=== PATIENT | female | born 1945 | race Caucasian/White ===

== ENCOUNTER → 2016-08-03 | Outpatient (CLI) | payer MEDICARE, OTHER ==
[~2016-08-03] MED LIST: AC500T; ACDPT PO; ALPR.25T PO; ALPR.5T; ALPR0.2550; ALPR0.2550 PO; ASP81CT; ASPI-892 PO; CELEBREX; CETI10TA17 PO; CTRZ10T; CTRZ10T PO; CYAN25005 SL; DIPH1TAB25 PO; ENAL10TA PO; ENLP10T; ENLP10T PO; ESCT10T; GLIP10TA23; GLIPIZIDE; LEVO75TA57 PO; LEVOTHYROXINE; LUMIGAN; LVT.025T; LVT.025T PO; METFORMIN; MTF500T; MTF500T PO; NF-ESOM40C PO; NITR100C3 PO; ONDN4T PO; PROBIOTIC1 EACH PO; TIMO10DR OU; TML.25OP; TRAV0.004S; [UNRECOGNIZED DRUG - CODE] OD; [UNRECOGNIZED DRUG - CODE] PO; [UNRECOGNIZED DRUG - OTHER]
--- OUTSIDE RECORDS SUMMARY | 2016-08-03 09:29 | XMS REPORT | Continuity of Care Document ---
Author Author [facility] Organization [facility] Address Unknown Phone Unavailable Care Team Providers Care Inspectors And Regulatory Officers Name Role Phone Zion Figueroayd PCP [phone] Source Comments Some departments are not documenting in the electronic medical record. If you do not see the information that you expected, contact Release of Information in the Health Information Management department at [phone] for further assistance in locating additional records.[facility] Active Allergies and Adverse Reactions Allergen Noted Date Severity Reactions Comments Anectine 08/05/2014 UNKNOWN Codeine Sulfate 08/05/2014 UNKNOWN Contrast Dye Iv, Iodine 08/05/2014 UNKNOWN Containing Demerol 08/05/2014 UNKNOWN Levaquin 08/05/2014 UNKNOWN Rocephin 08/05/2014 UNKNOWN Talwin 08/05/2014 UNKNOWN Current Medications Prescription Sig. Disp. Refills Start End Date Status Date aspirin EC (LO-DOSE Take 81 mg by mouth Active ASPIRIN) 81 mg tablet daily. cetirizine (ZYRTEC) 10 mg Take 10 mg by mouth Active tablet daily. levothyroxine (SYNTHROID) Take 75 mcg by mouth Active 75 mcg tablet daily. metFORMIN (GLUCOPHAGE) Take 250 mg by mouth Active 500 mg tablet twice daily with meals. cyanocobalamin (VITAMIN Take 1,000 mcg by mouth Active B-12) 1,000 mcg tablet daily. CALCIUM CITRATE (CITRACAL Take 400 mg by mouth Active PO) daily. TRAVOPROST (BENZALKONIUM) Place 1 Drop into or Active (TRAVATAN OP) around eye(s) daily. LOTEPREDNOL ETABONATE Place 1 Drop into or Active (ALREX OP) around eye(s) daily. both eyes promethazine (PHENERGAN) Take 25 mg by mouth every Active 25 mg tablet 6 hours as needed. bepotastine besilate Place 1 Drop into or Active (BEPREVE) 1.5 % drop around eye(s) twice ophthalmic solution daily. TIMOLOL MALEATE OP Place into or around Active eye(s). sucralfate (CARAFATE) 1 Take 1 Tab by mouth three 90 Tab 2 09/14/19 Active gram tablet times daily. 15 lubiprostone (AMITIZA) 8 Take 1 Cap by mouth twice 48 Cap 0 09/25/19 Active mcg cap capsule daily with meals. 15 Active Problems Problem Noted Date Diabetes (HCC) 08/09/2014 Constipation 08/09/2014 GERD (gastroesophageal reflux disease) 08/09/2014 Social History Tobacco Use Types Packs/Day Years Used Date Former Smoker Quit: 08/09/1982 Smokeless Tobacco: Never Used Alcohol Use Drinks/Week oz/Week Comments No Last Filed Vital Signs Vital Sign Reading Time Taken Blood Pressure 169/86 09/13/2014 1:54 PM CDT Pulse 60 09/13/2014 1:54 PM CDT Temperature 36.6 C (97.8 F) 09/13/2014 1:54 PM CDT Respiratory Rate 18 09/13/2014 1:54 PM CDT Height 1.803 m (5' 11") 09/13/2014 1:54 PM CDT Weight 97.569 kg (215 lb 1.6 oz) 09/13/2014 1:54 PM CDT Body Mass Index 30.01 09/13/2014 1:54 PM CDT Oxygen Saturation - - Plan of Care Health Maintenance Due Date Last Done Comments Physical (Comprehensive) 1952 Exam Pertussis Vaccine 1956 Tetanus Vaccine 1962 Breast Cancer Screening 1985 Shingles Vaccine 2005 Osteoporosis Screening 2010 Prevnar/Pneumovax (#1) 2010 Influenza Vaccine 03/01/2016 Colorectal Cancer 08/23/2024 08/23/2014 Screening Results from Last 3 Months Not on file
--- NOTE | 2016-08-06 13:15 | Diagnostic Imaging Report ---
Bilateral screening mammogram. The current study was also evaluated with a Computer Aided Detection (CAD) system. INDICATION: Screening. No current complaints stated on the questionnaire. COMPARISON: 08/02/15. FINDINGS: The breasts are composed of heterogeneously dense parenchyma which may decrease mammographic sensitivity. A large lumpectomy was performed in the left breast with stable scarring and skin thickening from multiple prior exams is seen. Allowing for technique and positional differences, no suspicious change is seen. IMPRESSION: No significant change. ACR BI-RADS Category 2: Benign findings. Result letter will be mailed to the patient. Note: At least 10% of breast cancer is not imaged by mammography. Dictated by: Dictated on workstation # [id number]
== END ==
LOC: RAD 09:26
PROVIDERS: ATTEND Internal Medicine Hematology & Oncology
DX: Z12.31 Encounter for screening mammogram for malignant neoplasm of breast (principal); Z85.3 Personal history of malignant neoplasm of breast
CPT/HCPCS: 77067

== ENCOUNTER 2016-08-08 08:43 | Outpatient (RCR) | payer MEDICARE, OTHER ==
--- OUTSIDE RECORDS SUMMARY | 2016-08-08 08:45 | XMS REPORT | Continuity of Care Document ---
Author Author [facility] Organization [facility] Address Unknown Phone Unavailable Care Team Providers Care Customs Manager Name Role Phone Zion Figueroayd PCP [phone] Source Comments Some departments are not documenting in the electronic medical record. If you do not see the information that you expected, contact Release of Information in the Health Information Management department at [phone] for further assistance in locating additional records.[facility] Active Allergies and Adverse Reactions Allergen Noted [...]
[2016-08-08 08:59] LABS: BASOPHILS % (AUTO) 0 % (0-10); EOSINOPHILS # (AUTO) 0.3 10^3/uL (0.0-0.3); EOSINOPHILS % (AUTO) 3 % (0-10); LYMPHOCYTES # (AUTO) 2.4 X 10^3 (1.0-4.0); LYMPHOCYTES % (AUTO) 21 % (12-44); MEAN CORPUSCULAR HEMOGLOBIN 31 PG (25-34); MEAN CORPUSCULAR HGB CONC 33 G/DL (32-36); MEAN CORPUSCULAR VOLUME 92 FL (80-99); MEAN PLATELET VOLUME 10.1 FL (7.4-10.4); MONOCYTES % (AUTO) 9 % (0-12); NEUTROPHILS # (AUTO) 7.7 X 10^3 (1.8-7.8); NEUTROPHILS % (AUTO) 67 % (42-75); PLATELET COUNT 226 10^3/uL (130-400); RED CELL DISTRIBUTION WIDTH 13.6 % (10.0-14.5); WHITE BLOOD COUNT 11.5 10^3/uL (4.3-11.0)
[2016-08-08 10:09] LABS: BILIRUBIN,TOTAL 0.7 MG/DL (0.1-1.0); CALCIUM 9.3 MG/DL (8.5-10.1); CREATININE SERUM 1.03 MG/DL (0.60-1.30); POTASSIUM 4.2 MMOL/L (3.6-5.0); TOTAL PROTEIN 7.1 G/DL (6.4-8.2)
== END 2016-11-06 | disposition home or self-care (01) ==
LOC: ONC 08:43
PROVIDERS: ATTEND Internal Medicine Hematology & Oncology
DX: Z08 Encounter for follow-up examination after completed treatment for malignant neoplasm (principal); Z85.3 Personal history of malignant neoplasm of breast; E11.9 Type 2 diabetes mellitus without complications; I10 Essential (primary) hypertension; I34.8 Other nonrheumatic mitral valve disorders; E78.00 Pure hypercholesterolemia, unspecified; E03.9 Hypothyroidism, unspecified; F41.9 Anxiety disorder, unspecified; H40.9 Unspecified glaucoma; Z79.899 Other long term (current) drug therapy
CPT/HCPCS: 36415; 80053; 85025; 99213

== ENCOUNTER → 2016-08-13 | Outpatient (CLI) | payer MEDICARE, OTHER ==
--- OUTSIDE RECORDS SUMMARY | 2016-08-13 11:41 | XMS REPORT | Continuity of Care Document ---
Author Author [facility] Organization [facility] Address Unknown Phone Unavailable Care Team Providers Care Laser Machine Operator Name Role Phone Zion Figueroayd PCP [phone] Source Comments Some departments are not documenting in the electronic medical record. If you do not see the information that you expected, contact Release of Information in the Health Information Management department at [phone] for further assistance in locating additional records.[facility] Active Allergies and Adverse Reactions Allergen [...]
[2016-08-13 12:04] LABS: MEAN PLATELET VOLUME 9.9 FL (7.4-10.4); RED BLOOD COUNT 4.72 10^6/uL (4.35-5.85); RED CELL DISTRIBUTION WIDTH 13.1 % (10.0-14.5); WHITE BLOOD COUNT 10.7 10^3/uL (4.3-11.0)
--- NOTE | 2016-08-13 12:19 | Diagnostic Imaging Report ---
PA and lateral views of the chest. COMPARISON: 07/05/2010. FINDINGS: There is mild infiltrate in the lateral aspect of the right middle lobe. The left lung appears clear. The heart size is normal. No effusion or pneumothorax. The mediastinum and mari appear unremarkable. IMPRESSION: Mild right middle lobe infiltrates. Report was called and faxed to office of Dr. Figueroa @ 12:11 PM/harshad. Dictated by: Dictated on workstation # [id number]
== END ==
LOC: RAD 11:36
PROVIDERS: ATTEND Family Medicine
DX: R05 Cough (principal); R50.9 Fever, unspecified
CPT/HCPCS: 36415; 71020; 85027

== ENCOUNTER → 2016-11-28 | Outpatient (CLI) | payer MEDICARE, OTHER ==
--- NOTE | 2016-11-28 13:25 | Diagnostic Imaging Report ---
PROCEDURE: US Carotid Duplex Bilateral. TECHNIQUE: Multiple real-time grayscale images were obtained over the carotid arteries in various projections bilaterally. Additional duplex Doppler and color Doppler images were also obtained. INDICATION: Dizziness. FINDINGS: Grayscale images demonstrate generally mild plaque along the carotid bifurcation bilaterally. Color Doppler demonstrates patent common, internal, and external carotid arteries on both sides as well as antegrade flow in both vertebral arteries demonstrated. The ICA velocities on the right side are: 82, 42, and 50 cm/s. On the left side, the ICA velocities are: 61, 18, and 40 cm/s. The ICA/CCA ratios are up to 1.4 on the right and also 1.4 on the left. IMPRESSION: Mild atherosclerotic plaque is seen in the carotid bifurcation areas bilaterally with an estimated underlying stenosis of less than 40% bilaterally. Dictated by: Dictated on workstation # [id number]
== END ==
LOC: RAD 08:41
PROVIDERS: ATTEND Family Medicine
DX: R26.81 Unsteadiness on feet (principal); R42 Dizziness and giddiness; I65.23 Occlusion and stenosis of bilateral carotid arteries
CPT/HCPCS: 93880

== ENCOUNTER → 2017-08-05 | Outpatient (CLI) | payer MEDICARE, OTHER ==
--- NOTE | 2017-08-06 12:51 | Diagnostic Imaging Report ---
EXAMINATION: Digital mammogram bilateral screening. This study was compared to the prior exams of 08/03/2016, 08/02/2015, and 08/02/2014. At this time, there are no current complaints. The current study was also evaluated with a Computer Aided Detection (CAD) system. FINDINGS: As noted on the previous study, there are postsurgical and post therapeutic changes involving the left breast. The scar formation in the left breast seems stable. There is no sign of recurrent malignancy in the left breast. The fibroglandular tissue in the right breast is heterogeneously dense. This does limit the sensitivity of this exam. Overall, there does not appear to have been any significant change when compared to the previous studies. There is no primary or secondary sign of malignancy noted. IMPRESSION: 1. There is no evidence for malignancy. 2. The patient should have her annual bilateral screening mammogram on schedule in August of 2018. ACR BI-RADS Category 1: Negative. Result letter will be mailed to the patient. Note: At least 10% of breast cancer is not imaged by mammography. Dictated on workstation # [id number]
== END ==
LOC: RAD 09:40
PROVIDERS: ATTEND Internal Medicine Hematology & Oncology
DX: Z12.31 Encounter for screening mammogram for malignant neoplasm of breast (principal)
CPT/HCPCS: 77067

== ENCOUNTER 2017-08-06 08:42 | Outpatient (RCR) | payer MEDICARE, OTHER ==
[2017-08-06 09:51] LABS: BASOPHILS # (AUTO) 0.1 10^3/uL (0.0-0.1); BASOPHILS % (AUTO) 1 % (0-10); EOSINOPHILS # (AUTO) 0.3 10^3/uL (0.0-0.3); EOSINOPHILS % (AUTO) 4 % (0-10); HEMATOCRIT 41 % (35-52); HEMOGLOBIN 13.6 G/DL (11.5-16.0); LYMPHOCYTES # (AUTO) 2.7 X 10^3 (1.0-4.0); LYMPHOCYTES % (AUTO) 39 % (12-44); MEAN CORPUSCULAR HEMOGLOBIN 31 PG (25-34); MEAN CORPUSCULAR HGB CONC 33 G/DL (32-36); MEAN CORPUSCULAR VOLUME 95 FL (80-99); MEAN PLATELET VOLUME 10.3 FL (7.4-10.4); MONOCYTES # (AUTO) 0.6 X 10^3 (0.0-1.0); MONOCYTES % (AUTO) 9 % (0-12); NEUTROPHILS # (AUTO) 3.3 X 10^3 (1.8-7.8); NEUTROPHILS % (AUTO) 47 % (42-75); PLATELET COUNT 273 10^3/uL (130-400); RED BLOOD COUNT 4.37 10^6/uL (4.35-5.85); RED CELL DISTRIBUTION WIDTH 13.7 % (10.0-14.5); WHITE BLOOD COUNT 6.9 10^3/uL (4.3-11.0)
[2017-08-06 10:08] LABS: ALANINE AMINOTRANSFERASE 15 U/L (0-55); ALBUMIN 4.1 GM/DL (3.2-4.5); ALKALINE PHOSPHATASE 70 U/L (40-136); BILIRUBIN,TOTAL 0.4 MG/DL (0.1-1.0); BUN/CREATININE RATIO 27; CALCIUM 9.8 MG/DL (8.5-10.1); CARBON DIOXIDE 25 MMOL/L (21-32); CHLORIDE 105 MMOL/L (98-107); CREATININE SERUM 0.91 MG/DL (0.60-1.30); GFR ESTIMATED > 60; GLUCOSE 128 MG/DL (70-105); POTASSIUM 4.9 MMOL/L (3.6-5.0); SODIUM 139 MMOL/L (135-145); TOTAL PROTEIN 7.5 GM/DL (6.4-8.2)
== END 2017-11-04 | disposition home or self-care (01) ==
LOC: ONC 08:42
PROVIDERS: ATTEND Internal Medicine Hematology & Oncology
DX: Z08 Encounter for follow-up examination after completed treatment for malignant neoplasm (principal); Z85.3 Personal history of malignant neoplasm of breast; E11.9 Type 2 diabetes mellitus without complications; I10 Essential (primary) hypertension; I34.8 Other nonrheumatic mitral valve disorders; E78.00 Pure hypercholesterolemia, unspecified; E03.9 Hypothyroidism, unspecified; F41.9 Anxiety disorder, unspecified; H40.9 Unspecified glaucoma; J06.9 Acute upper respiratory infection, unspecified; J32.9 Chronic sinusitis, unspecified; Z86.73 Personal history of transient ischemic attack (TIA), and cerebral infarction without residual deficits; Z79.899 Other long term (current) drug therapy
CPT/HCPCS: 36415; 80053; 85025; 99213

== ENCOUNTER → 2018-03-26 | Outpatient (CLI) | payer MEDICARE, OTHER | LOC: CARD 08:25 | PROVIDERS: ATTEND Family Medicine | DX: R06.09 Other forms of dyspnea (principal); I08.3 Combined rheumatic disorders of mitral, aortic and tricuspid valves | CPT/HCPCS: 93306 ==

== ENCOUNTER → 2018-05-01 | Outpatient (CLI) | payer MEDICARE, OTHER ==
[~2018-05-01] VITALS: Ht 180.3 cm; Wt 92.5 kg
[~2018-05-01] MED LIST changes: +AFLI2VIA IO; +BIMA2.5D4 OU; +CATHETER FLUSH 10 ML SYR IV PRN; +KRIL1CAP18 PO; +MELA1TAB8 PO; +MULT-178 PO; +OLOP2.5D5 OU; +PROM25TA14 PO; +REGADENOSON 0.4 MG/5 ML SYR (LEXISCAN) IV ONE
[2018-05-01 08:48] VITALS: BP 198/108
[2018-05-01 08:52] VITALS: BP 166/72
--- NOTE | 2018-05-05 13:37 | STRESS TEST ---
DATE OF SERVICE: 05/01/2018 RESTING AND POST REGADENOSON TECHNETIUM-99M TETROFOSMIN SPECT CT IMAGING CLINICAL DIAGNOSES: Tiredness, shortness of breath, diabetes and hypertension. Baseline images were carried out after injection of 10.07 mCi of technetium-99m Tetrofosmin. This was followed by 0.4 mg of Regadenoson and 31.1 mCi of technetium-99m Tetrofosmin for stress imaging. The electrocardiogram showed sinus rhythm at baseline and it did not change significantly with the Regadenoson infusion. The patient reported some abdominal discomfort following Regadenoson infusion, which resolved in a few minutes. Review of images at rest and following stress indicates a small transient basal inferior perfusion defect. Gated images showed normal global left ventricular systolic function and normal regional wall motion. Left ventricular ejection fraction is calculated to be 64%. Left ventricular end diastolic volume is 70 mL. TID is absent (1.02). CONCLUSIONS: 1. This study is indicative of a small amount of basal inferior ischemia. 2. Normal regional wall motion. 3. Normal global left ventricular systolic function with a calculated ejection fraction of 64%. Job ID: [id number] DocumentID: [id number] Dictated Date: 05/05/2018 13:10:48 Cattery Operator Date: 05/05/2018 13:37:19 Dictated By: HEATHER GALVEZ MD, MA, FACP, FACC,
== END ==
LOC: CARD 06:57
PROVIDERS: ATTEND Internal Medicine Cardiovascular Disease
DX: R53.83 Other fatigue (principal); R06.02 Shortness of breath; E78.2 Mixed hyperlipidemia; I10 Essential (primary) hypertension; E11.9 Type 2 diabetes mellitus without complications; I27.20 Pulmonary hypertension, unspecified
CPT/HCPCS: 78452; 93017

== ENCOUNTER 2018-05-06 11:20 | Outpatient (CLI) | payer MEDICARE, OTHER ==
[~2018-05-06 11:20] MED LIST changes: -AFLI2VIA IO; -BIMA2.5D4 OU; -CATHETER FLUSH 10 ML SYR IV PRN; -KRIL1CAP18 PO; -MELA1TAB8 PO; -MULT-178 PO; -OLOP2.5D5 OU; -PROM25TA14 PO; -REGADENOSON 0.4 MG/5 ML SYR (LEXISCAN) IV ONE
== END 2018-05-06 12:05 | disposition home or self-care (01) ==
LOC: SLEEP 11:20
PROVIDERS: ATTEND Nurse Practitioner Family
DX: G47.10 Hypersomnia, unspecified (principal); I27.20 Pulmonary hypertension, unspecified; R06.02 Shortness of breath; I63.9 Cerebral infarction, unspecified

== ENCOUNTER 2018-05-13 08:07 | Day surgery (SDC) | payer MEDICARE, OTHER ==
[~2018-05-13] VITALS: Ht 180.3 cm; Wt 91.2 kg
[2018-05-13] MEDS ORDERED: HEParin (CATH LAB) 2,000 ML IV ONE (08:12)
[2018-05-13] MEDS ORDERED: NS IV 1000 ML 1,000 ML ONE (08:12)
[2018-05-13] MEDS ORDERED: LIDOCAINE 1% INJ 20 ML 20 ML VIAL ONE (08:12)
--- OUTSIDE RECORDS SUMMARY | 2018-05-13 08:38 | XMS REPORT | Clinical Summary ---
Author Author [facility] Organization [facility] Address Unknown Phone Unavailable Care Team Providers Care Compensation/Benefits Specialist Name Role Phone Sandy Freitas TATA Unavailable Jose Manuel Figueroa MD PCP Andrae Tran MD Unavailable Source Comments Some departments are not documenting in the electronic medical record. If you do not see the information that you expected, contact Release of Information in the Health Information Management department at [phone] for further assistance in locating additional records.[facility] Allergies Active Allergy Reactions Severity Noted Date Comments Succinylcholine Chloride UNKNOWN 08/05/2014 Codeine Sulfate UNKNOWN 08/05/2014 Iodinated Contrast- Oral UNKNOWN 08/05/2014 And Iv Dye Meperidine UNKNOWN 08/05/2014 Levofloxacin UNKNOWN 08/05/2014 Ceftriaxone UNKNOWN 08/05/2014 Pentazocine Lactate UNKNOWN 08/05/2014 Current Medications Prescription Sig. Disp. Refills Start [...] three 90 Tab 2 09/14/19 Active gram tabletIndications: times daily. 15 Epigastric pain lubiprostone (AMITIZA) 8 Take 1 Cap by mouth twice 48 Cap 0 09/25/19 Active mcg cap capsule daily with meals. 15 Active Problems Problem Noted Date Diabetes (HCC) 08/09/2014 Constipation 08/09/2014 GERD (gastroesophageal reflux disease) 08/09/2014 Family History Medical History Relation Name Comments COPD Brother Cancer-Colon Brother 1/2 brother, dx in his 50's Cancer Brother GI Problem Daughter Cancer Father oral cancer COPD Mother Hypertension Son Relation Name Status Comments Brother Brother Daughter Alive Daughter Alive Father Mother Son Alive Social History Tobacco Use Types Packs/Day Years Used Date Former Smoker Quit: 08/09/1982 Smokeless Tobacco: Never Used Alcohol Use Drinks/Week oz/Week Comments No Sex Assigned at Date Recorded Not on file Last Filed Vital Signs Vital Sign Reading Time Taken Blood Pressure 169/86 09/13/2014 1:54 PM CDT Pulse 60 09/13/2014 1:54 PM CDT Temperature 36.6 C (97.8 F) 09/13/2014 1:54 PM CDT Respiratory Rate 18 09/13/2014 1:54 PM CDT Oxygen Saturation - - Inhaled Oxygen - - Concentration Weight 97.6 kg (215 lb 1.6 oz) 09/13/2014 1:54 PM CDT Height 180.3 cm (5' 11") 09/13/2014 1:54 PM CDT Body Mass Index 30 09/13/2014 1:54 PM CDT Plan of Treatment Health Maintenance Due Date Last Done Comments HEPATITIS C SCREENING 1945 PHYSICAL (COMPREHENSIVE) 1952 EXAM PERTUSSIS VACCINE 1956 TETANUS VACCINE 1962 BREAST CANCER SCREENING 1985 SHINGLES RECOMBINANT 09/01/1995 VACCINE (1 of 2) OSTEOPOROSIS 2010 SCREENING/MONITORING PNEUMONIA (PCV13/PPSV23) 2010 VACCINES (1 of 2 - PCV13) INFLUENZA VACCINE 01/29/2018 COLORECTAL CANCER 08/23/2024 08/23/2014 SCREENING Results Not on filefrom Last 3 Months
[2018-05-13 08:39] VITALS: BP 157/78
[2018-05-13 08:40] LABS: HEMOGLOBIN 13.8 G/DL (11.5-16.0); MEAN PLATELET VOLUME 10.4 FL (7.4-10.4); RED BLOOD COUNT 4.58 10^6/uL (4.35-5.85); RED CELL DISTRIBUTION WIDTH 13.3 % (10.0-14.5); WHITE BLOOD COUNT 6.6 10^3/uL (4.3-11.0)
--- OUTSIDE RECORDS SUMMARY | 2018-05-13 08:40 | XMS REPORT | Continuity of Care Document ---
Author Author [facility] Organization [facility] Address Unknown Phone Unavailable Allergies Active Description Code Type Severity Reaction Onset Reported/Identified Relationship to Patient Clinical Status Yes ciprofloxacin [id number] Drug Allergy Unknown N/A 09/02/2006 Yes codeine [id number] Drug Allergy Unknown N/A 09/02/2006 Yes IV DYE IV DYE Unknown N/A 09/02/2006 Yes meperidine [id number] Drug Allergy Unknown N/A 09/02/2006 Yes succinylcholine [id number] Drug Allergy Mild N/A 11/23/2008 Yes pentazocine [id number] Drug Allergy Mild N/A 06/27/2009 Yes ceftriaxone [id number] Drug Allergy Mild N/A 07/07/2009 Yes levofloxacin [id number] Drug Allergy Mild N/A 07/07/2009 Yes morphine [id number] Drug Allergy Mild N/A 07/07/2009 Yes Iodinated Contrast Media - IV Dye [id number] Drug Allergy Unknown N/A 07/07 Yes Iodinated Contrast Media - Oral and [id number] Drug Allergy Unknown N/A 12/2009 Yes Iodinated Contrast- Oral and IV Dye [id number] Drug Allergy Unknown N/A 12/2009 Medications There is no data. Problems Date Dx Coded Attending Type Code Diagnosis Diagnosed By 07/07/2010 Ot 250.00 07/07/2010 Ot 276.50 07/07/2010 Ot 401.9 07/07/2010 Ot 558.9 07/07/2010 Ot 599.0 04/11/2011 Ot 784.0 HEADACHE 04/21/2011 Ot 244.9 HYPOTHYROIDISM NOS 04/21/2011 Ot 250.00 DIAB PRIMO WO COMPL, TYPE II OR UNSPEC TY 04/21/2011 Ot 300.00 ANXIETY STATE NOS 04/21/2011 Ot 401.9 HYPERTENSION NOS 04/21/2011 Ot 414.01 CORONARY ATHEROSCLEROSIS OF [place] CORON 04/21/2011 Ot 434.91 CEREBRAL ART OCCLUSION NOS W CEREBRAL IN 04/21/2011 Ot V04.81 ND FOR PROPHYLACTIC VACCIN AND INOCULATI 08/12/2012 Ot 244.9 HYPOTHYROIDISM NOS 08/12/2012 Ot 250.00 DIAB PRIMO WO COMPL, TYPE II OR UNSPEC TY 08/12/2012 Ot 272.0 PURE HYPERCHOLESTEROLEM 08/12/2012 Ot 300.00 ANXIETY STATE NOS 08/12/2012 Ot 365.9 GLAUCOMA NOS 08/12/2012 Ot 401.9 HYPERTENSION NOS 08/12/2012 Ot 424.0 MITRAL VALVE DISORDER 08/12/2012 Ot V10.3 HX OF BREAST MALIGNANCY 08/12/2012 Ot V67.1 RADIOTHERAPY FOLLOW-UP 11/11/2012 Ot 244.9 HYPOTHYROIDISM NOS 11/11/2012 Ot 250.00 DIAB PRIMO WO COMPL, TYPE II OR UNSPEC TY 11/11/2012 Ot 272.0 PURE HYPERCHOLESTEROLEM 11/11/2012 Ot 300.00 ANXIETY STATE NOS 11/11/2012 Ot 365.9 GLAUCOMA NOS 11/11/2012 Ot 401.9 HYPERTENSION NOS 11/11/2012 Ot 424.0 MITRAL VALVE DISORDER 11/11/2012 Ot V10.3 HX OF BREAST MALIGNANCY 11/11/2012 Ot V67.1 RADIOTHERAPY FOLLOW-UP 07/23/2014 PEGGY TRANG GRAVES Ot 244.9 HYPOTHYROIDISM NOS 07/23/2014 PEGGY GRAVES TRANG Saleh Ot 250.00 DIAB PRIMO WO COMPL, TYPE II OR UNSPEC TY 07/23/2014 PEGGY TRANG Saleh Ot 401.9 HYPERTENSION NOS 08/25/2014 IRENE KAPADIA, JOHANN Saleh Ot 174.9 08/25/2014 IRENE KAPADIA, JOHANN Saleh Ot V76.11 09/27/2014 IRENE KAPADIA, JOHANN Therese Ot 244.9 09/27/2014 IRENE KAPADIA, JOHANN Saleh Ot 250.00 09/27/2014 IRENE KAPADIA, JOHANN Saleh Ot 272.0 09/27/2014 IRENE KAPADIA, JOHANN Saleh Ot 300.00 09/27/2014 IRENE KAPADIA, JOHANN Saleh Ot 365.9 09/27/2014 IRENE KAPADIA, JOHANN Saleh Ot 401.9 09/27/2014 IRENE KAPADIA, JOHANN Saleh Ot 424.0 09/27/2014 IRENE KAPADIA, JOHANN Saleh Ot V10.3 09/27/2014 IRENE KAPADIA, JOHANN Saleh Ot V58.69 09/27/2014 IRENE KAPADIA, JOHANN Saleh Ot V67.1 10/06/2014 IRENE KAPADIA, JOHANN Saleh Ot 244.9 10/06/2014 IRENE KAPADIA, JOHANN Saleh Ot 250.00 10/06/2014 IRENE KAPADIA, JOHANN Saleh Ot 272.0 10/06/2014 IRENE KAPADIA, JOHANN Saleh Ot 300.00 10/06/2014 IRENE KAPADIA, JOHANN Saleh Ot 365.9 10/06/2014 IRNEE KAPADIA, JOHANN Saleh Ot 401.9 10/06/2014 IRENE KAPADIA, JOHANN Saleh Ot 424.0 10/06/2014 IRENE KAPADIA, JOHANN Saleh Ot V10.3 10/06/2014 IRENE KAPADIA, JOHANN Saleh Ot V58.69 10/06/2014 IRENE KAPADIA, JOHANN Saleh Ot V67.1 11/08/2014 JOHANN BONILLA MD Ot 244.9 HYPOTHYROIDISM NOS 11/08/2014 IRENE KAPADIA, JOHANN Saleh Ot 250.00 DIAB PRIMO WO COMPL, TYPE II OR UNSPEC TY 11/08/2014 JOHANN BONILLA MD Ot 272.0 PURE HYPERCHOLESTEROLEM 11/08/2014 JOHANN BONILLA MD Ot 300.00 ANXIETY STATE NOS 11/08/2014 JOHANN BONILLA MD Ot 365.9 GLAUCOMA NOS 11/08/2014 IRENE KAPADIA, JOHANN Saleh Ot 401.9 HYPERTENSION NOS 11/08/2014 IRENE KAPADIA, JOHANN Saleh Ot 424.0 MITRAL VALVE DISORDER 11/08/2014 IRENE KAPADIA, JOHANN Saleh Ot V10.3 HX OF BREAST MALIGNANCY 11/08/2014 IRENE KAPADIA, JOHANN Saleh Ot V58.69 OTH MED,LT,CURRENT USE 11/08/2014 IRENE KAPADIA, JOHANN Saleh Ot V67.1 RADIOTHERAPY FOLLOW-UP 06/02/2015 IRENE KAPADIA, JOHANN Saleh Ot 244.9 06/02/2015 IRENE KAPADIA, JOHANN Saleh Ot 250.00 06/02/2015 IRENE KAPADIA, JOHANN Saleh Ot 272.0 06/02/2015 IRENE KAPADIA, JOHANN Saleh Ot 300.00 06/02/2015 IRENE KAPADIA, JOHANN Saleh Ot 365.9 06/02/2015 IRENE KAPADIA, JOHANN Saleh Ot 401.9 06/02/2015 IRENE KAPADIA, JOHANN Saleh Ot 424.0 06/02/2015 IRENE KAPADIA, JOHANN Saleh Ot V10.3 06/02/2015 IRENE KAPADIA, JOHANN Saleh Ot V67.1 06/02/2015 IRENE KAPADIA, JOHANN Saleh Ot 244.9 06/02/2015 IRENE KAPADIA, JOHANN Saleh Ot 250.00 06/02/2015 IRENE KAPADIA, JOHANN Saleh Ot 272.0 06/02/2015 IRENE KAPADIA, JOHANN Saleh Ot 300.00 06/02/2015 JOHANN BONILLA MD K Ot 365.9 06/02/2015 IRENE KAPADIA, JOHANN Saleh Ot 401.9 06/02/2015 IRENE KAPADIA, JOHANN Saleh Ot 424.0 06/02/2015 IRENE KAPADIA, JOHANN Saleh Ot V10.3 06/02/2015 IRENE KPAADIA, JOHANN Saleh Ot V67.1 06/02/2015 IRENE KAPADIA, JOHANN Saleh Ot 793.89 06/02/2015 IRENE KAPADIA, JOHANN Saleh Ot 174.9 06/02/2015 IRENE KAPADIA, JOHANN Saleh Ot V76.11 06/02/2015 IRENE KAPADIA, JOHANN Saleh Ot 244.9 06/02/2015 IRENE KAPADIA, JOHANN Saleh Ot 250.00 06/02/2015 IRENE KAPADIA, JOHANN Saleh Ot 272.0 06/02/2015 IRENE KAPADIA, JOHANN Saleh Ot 300.00 06/02/2015 IRENE KAPADIA, JOHANN Saleh Ot 365.9 06/02/2015 IRENE KAPADIA, JOHANN Saleh Ot 401.9 06/02/2015 IRENE KAPADIA, JOHANN Saleh Ot 424.0 06/02/2015 IRENE KAPADIA, JOHANN Saleh Ot V10.3 06/02/2015 IRENE KAPADIA, JOHANN Saleh Ot V58.69 06/02/2015 IRENE KAPADIA, JOHANN Saleh Ot V67.1 06/22/2015 ELISA JOHNSON MAIL SORTING SUPERVISOR Ot S83.261A 06/22/2015 ELISA JOHNSON MAIL SORTING SUPERVISOR Ot X58.XXXA 06/22/2015 ELISA JOHNSON MAIL SORTING SUPERVISOR Ot Y99.8 07/13/2015 ELISA JOHNSON MAIL SORTING SUPERVISOR Ot S83.261A 07/13/2015 ELISA JOHNSON MAIL SORTING SUPERVISOR Ot X58.XXXA 07/13/2015 ELISA JOHNSON MAIL SORTING SUPERVISOR Ot Y99.8 08/02/2015 Ot V76.12 08/02/2015 Ot 793.89 08/02/2015 Ot V76.12 08/02/2015 Ot 793.81 08/02/2015 Ot 781.0 08/02/2015 Ot 784.0 08/02/2015 Ot 787.01 08/02/2015 Ot 794.09 08/02/2015 Ot 174.9 08/02/2015 Ot 174.9 08/02/2015 Ot 174.9 08/02/2015 Ot 793.89 08/02/2015 Ot 244.9 08/02/2015 Ot 250.00 08/02/2015 Ot 272.0 08/02/2015 Ot 300.00 08/02/2015 Ot 365.9 08/02/2015 Ot 401.9 08/02/2015 Ot 424.0 08/02/2015 Ot V10.3 08/02/2015 Ot V67.1 08/02/2015 Ot 174.9 08/02/2015 Ot 793.89 08/02/2015 IRENE KAPADIA, JOHANN K Ot 244.9 08/02/2015 IRENE KAPADIA, JOHANN K Ot 250.00 08/02/2015 IRENE KAPADIA, JOHANN K Ot 272.0 08/02/2015 IRENE KAPADIA, JOHANN K Ot 300.00 08/02/2015 IRENE KAPADIA, JOHANN K Ot 365.9 08/02/2015 IRENE KAPADIA, JOHANN K Ot 401.9 08/02/2015 IRENE KAPADIA, JOHANN K Ot 424.0 08/02/2015 IRENE KAPADIA, JOHANN K Ot V10.3 08/02/2015 IRENE KAPADIA, JOHANN K Ot V67.1 08/02/2015 IRENE KAPADIA, JOHANN K Ot 233.0 08/02/2015 IRENE KAPADIA, JOHANN K Ot V67.9 08/02/2015 IRENE KAPADIA, JOHANN K Ot 244.9 08/02/2015 IRENE KAPADIA, JOHANN K Ot 250.00 08/02/2015 IRENE KAPADIA, JOHANN K Ot 272.0 08/02/2015 IRENE KAPADIA, JOHANN K Ot 300.00 08/02/2015 IRENE KAPADIA, JOHANN K Ot 365.9 08/02/2015 IRENE KAPADIA, JOHANN K Ot 401.9 08/02/2015 IRENE KAPADIA, JOHANN K Ot 424.0 08/02/2015 IRENE KAPADIA, JOHANN K Ot V10.3 08/02/2015 IRENE KAPADIA, JOHANN K Ot V67.1 08/02/2015 IRENE KAPADIA, JOHANN K Ot 244.9 08/02/2015 IRENE KAPADIA, JOHANN K Ot 250.00 08/02/2015 IRENE KAPADIA, JOHANN K Ot 272.0 08/02/2015 IRENE KAPADIA, JOHANN K Ot 300.00 08/02/2015 IRENE KAPADIA, JOHANN K Ot 365.9 08/02/2015 IRENE KAPADIA, JOHANN K Ot 401.9 08/02/2015 IRENE KAPADIA, JOHANN K Ot 424.0 08/02/2015 IRENE KAPADIA, JOHANN K Ot V13.89 08/02/2015 IRENE KAPADIA, JOHANN K Ot V58.69 08/02/2015 IRENE KAPADIA, JOHANN K Ot V67.1 08/02/2015 IRENE KAPADIA, JOHANN K Ot 793.89 08/02/2015 IRENE KAPADIA, JOHANN K Ot 174.9 08/02/2015 IRENE KAPADIA, JOHANN K Ot V76.11 08/02/2015 IRENE KAPADIA, JOHANN K Ot 244.9 08/02/2015 IRENE KAPADIA, JOHANN K Ot 250.00 08/02/2015 IRENE KAPADIA, JOHANN K Ot 272.0 08/02/2015 IRENE KAPADIA, JOHANN K Ot 300.00 08/02/2015 IRENE KAPADIA, JOHANN K Ot 365.9 08/02/2015 IRENE KAPADIA, JOHANN K Ot 401.9 08/02/2015 IRENE KAPADIA, JOHANN K Ot 424.0 08/02/2015 IRNEE KAPADIA, JOHANN K Ot V10.3 08/02/2015 IRENE KAPADIA, JOHANN Therese Ot V58.69 08/02/2015 IRENE KAPADIA, JOHANN K Ot V67.1 08/02/2015 ELISA JOHNSON MAIL SORTING SUPERVISOR Ot S83.261A 08/02/2015 ELISA JOHNSON MAIL SORTING SUPERVISOR Ot X58.XXXA 08/02/2015 ELISA JOHNSON MAIL SORTING SUPERVISOR Ot Y99.8 08/11/2015 IRENE KAPADIA, JOHANN Therese Ot 244.9 08/11/2015 IRENE KAPADIA, JOHANN Therese Ot 250.00 08/11/2015 IRENE KAPADIA, JOHANN Therese Ot 272.0 08/11/2015 IRENE KAPADIA, JOHANN K Ot 300.00 08/11/2015 IRENE KAPADIA, JOHANN K Ot 365.9 08/11/2015 IRENE KAPADIA, JOHANN Therese Ot 401.9 08/11/2015 IRENE KAPADIA, JOHANN K Ot 424.0 08/11/2015 IRENE KAPADIA, JOHANN Therese Ot V10.3 08/11/2015 IRENE KAPADIA, JOHANN K Ot V58.69 08/11/2015 IRENE KAPADIA, JOHANN K Ot V67.1 08/26/2015 IRENE KAPADIA, JOHANN Therese Ot Z12.31 08/26/2015 IRENE KAPADIA, JOHANN K Ot Z85.3 10/19/2015 IRENE KAPADIA, JOHANN Therese Ot E03.9 HYPOTHYROIDISM, UNSPECIFIED 10/19/2015 IRENE KAPADIA, JOHANN Saleh Ot E11.9 TYPE 2 DIABETES MELLITUS WITHOUT COMPLIC 10/19/2015 IRENE KAPADIA, JOHANN Saleh Ot E78.0 PURE HYPERCHOLESTEROLEMIA 10/19/2015 IRENE KAPADIA, JOHANN Saleh Ot F41.9 ANXIETY DISORDER, UNSPECIFIED 10/19/2015 JOHANN BONILLA MD Ot H40.9 UNSPECIFIED GLAUCOMA 10/19/2015 JOHANN BONILLA MD Ot I10 ESSENTIAL (PRIMARY) HYPERTENSION 10/19/2015 JOHANN BONILLA MD Ot I34.8 OTHER NONRHEUMATIC MITRAL VALVE DISORDER 10/19/2015 JOHANN BONILLA MD Ot Z08 ENCNTR FOR FOLLOW-UP EXAM AFTER TRTMT FO 10/19/2015 JOHANN BONILLA MD Ot Z79.899 OTHER ALF (CURRENT) DRUG THERAPY 10/19/2015 JOHANN BONILLA MD Ot Z85.3 PERSONAL HISTORY OF MALIGNANT NEOPLASM O 11/08/2015 JOHANN BONILLA MD Ot E03.9 HYPOTHYROIDISM, UNSPECIFIED 11/08/2015 JOHANN BONILLA MD Ot E11.9 TYPE 2 DIABETES MELLITUS WITHOUT COMPLIC 11/08/2015 JOHANN BONILLA MD Ot E78.0 PURE HYPERCHOLESTEROLEMIA 11/08/2015 JOHANN BONILLA MD Ot F41.9 ANXIETY DISORDER, UNSPECIFIED 11/08/2015 JOHANN BONILLA MD Ot H40.9 UNSPECIFIED GLAUCOMA 11/08/2015 JOHANN BONILLA MD Ot I10 ESSENTIAL (PRIMARY) HYPERTENSION 11/08/2015 JOHANN BONILLA MD Ot I34.8 OTHER NONRHEUMATIC MITRAL VALVE DISORDER 11/08/2015 JOHANN BONILLA MD Ot Z08 ENCNTR FOR FOLLOW-UP EXAM AFTER TRTMT FO 11/08/2015 JOHANN BONILLA MD Ot 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 11/08/2015 JOHANN BONILLA MD Ot Z85.3 PERSONAL HISTORY OF MALIGNANT NEOPLASM O 11/08/2015 JOHANN BONILLA MD Ot E03.9 HYPOTHYROIDISM, UNSPECIFIED 11/08/2015 JOHANN BONILLA MD Ot E11.9 TYPE 2 DIABETES MELLITUS WITHOUT COMPLIC 11/08/2015 JOHANN BONILLA MD Ot E78.0 PURE HYPERCHOLESTEROLEMIA 11/08/2015 JOHANN BONILLA MD Ot F41.9 ANXIETY DISORDER, UNSPECIFIED 11/08/2015 JOHANN BONILLA MD Ot H40.9 UNSPECIFIED GLAUCOMA 11/08/2015 JOHANN BONILLA MD Ot I10 ESSENTIAL (PRIMARY) HYPERTENSION 11/08/2015 JOHANN BONILLA MD Ot I34.8 OTHER NONRHEUMATIC MITRAL VALVE DISORDER 11/08/2015 JOHANN BONILLA MD Ot Z08 ENCNTR FOR FOLLOW-UP EXAM AFTER TRTMT FO 11/08/2015 JOHANN BONILLA MD Ot 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 11/08/2015 JOHANN BONILLA MD Ot Z85.3 PERSONAL HISTORY OF MALIGNANT NEOPLASM O 11/14/2015 JOHANN BONILLA MD Ot E03.9 HYPOTHYROIDISM, UNSPECIFIED 11/14/2015 JOHANN BONILLA MD Ot E11.9 TYPE 2 DIABETES MELLITUS WITHOUT COMPLIC 11/14/2015 JOHANN BONILLA MD Ot E78.0 PURE HYPERCHOLESTEROLEMIA 11/14/2015 JOHANN BONILLA MD Ot F41.9 ANXIETY DISORDER, UNSPECIFIED 11/14/2015 JOHANN BONILLA MD Ot H40.9 UNSPECIFIED GLAUCOMA 11/14/2015 JOHANN BONILLA MD Ot I10 ESSENTIAL (PRIMARY) HYPERTENSION 11/14/2015 JOHANN BONILLA MD Ot I34.8 OTHER NONRHEUMATIC MITRAL VALVE DISORDER 11/14/2015 JOHANN BONILLA MD Ot Z08 ENCNTR FOR FOLLOW-UP EXAM AFTER TRTMT FO 11/14/2015 JOHANN BONILLA MD Ot 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 11/14/2015 JOHANN BONILLA MD Ot Z85.3 PERSONAL HISTORY OF MALIGNANT NEOPLASM O 08/03/2016 Ot 793.89 OTH (ABN) FINDINGS ON RADIOLOGICAL EXAMI 08/03/2016 Ot V76.12 OTH SCREEN MAMMO-MALIGN NEOPLASM OF [place] 08/03/2016 Ot 793.81 MAMMOGRAPHIC MICROCLACIFICATION 08/03/2016 Ot 781.0 ABN INVOLUN MOVEMENT NEC 08/03/2016 Ot 784.0 HEADACHE 08/03/2016 Ot 787.01 NAUSEA WITH VOMITING 08/03/2016 Ot 794.09 ABN SECURITIES COUNSELOR FUNCT STUDY NEC 08/03/2016 Ot 174.9 MALIGN NEOPL BREAST NOS 08/03/2016 Ot 174.9 MALIGN NEOPL BREAST NOS 08/03/2016 Ot 174.9 MALIGN NEOPL BREAST NOS 08/03/2016 Ot 793.89 OTH (ABN) FINDINGS ON RADIOLOGICAL EXAMI 08/03/2016 Ot 244.9 HYPOTHYROIDISM NOS 08/03/2016 Ot 250.00 DIAB PRIMO WO COMPL, TYPE II OR UNSPEC TY 08/03/2016 Ot 272.0 PURE HYPERCHOLESTEROLEM 08/03/2016 Ot 300.00 ANXIETY STATE NOS 08/03/2016 Ot 365.9 GLAUCOMA NOS 08/03/2016 Ot 401.9 HYPERTENSION NOS 08/03/2016 Ot 424.0 MITRAL VALVE DISORDER 08/03/2016 Ot V10.3 HX OF BREAST MALIGNANCY 08/03/2016 Ot V67.1 RADIOTHERAPY FOLLOW-UP 08/03/2016 Ot 174.9 MALIGN NEOPL BREAST NOS 08/03/2016 Ot 793.89 OTH (ABN) FINDINGS ON RADIOLOGICAL EXAMI 08/03/2016 JOHANN BONILLA MD Ot 244.9 HYPOTHYROIDISM NOS 08/03/2016 JOHANN BONILAL MD Ot 250.00 DIAB PRIMO WO COMPL, TYPE II OR UNSPEC TY 08/03/2016 JOHANN BONILLA MD Ot 272.0 PURE HYPERCHOLESTEROLEM 08/03/2016 JOHANN BONILLA MD Ot 300.00 ANXIETY STATE NOS 08/03/2016 JOHANN BONILLA MD Ot 365.9 GLAUCOMA NOS 08/03/2016 JOHANN BONILLA MD Ot 401.9 HYPERTENSION NOS 08/03/2016 JOHANN BONILLA MD Ot 424.0 MITRAL VALVE DISORDER 08/03/2016 JOHANN BONILLA MD Ot V10.3 HX OF BREAST MALIGNANCY 08/03/2016 JOHANN BONILLA MD Ot V67.1 RADIOTHERAPY FOLLOW-UP 08/03/2016 JOHANN BONILLA MD Ot 233.0 CA IN SITU BREAST 08/03/2016 JOHANN BONILLA MD Ot V67.9 FOLLOW-UP EXAM NOS 08/03/2016 JOHANN BONILLA MD Ot 244.9 HYPOTHYROIDISM NOS 08/03/2016 JOHANN BONILLA MD Ot 250.00 DIAB PRIMO WO COMPL, TYPE II OR UNSPEC TY 08/03/2016 JOHANN BONILLA MD Ot 272.0 PURE HYPERCHOLESTEROLEM 08/03/2016 JOHANN BONILLA MD Ot 300.00 ANXIETY STATE NOS 08/03/2016 JOHANN BONILLA MD Ot 365.9 GLAUCOMA NOS 08/03/2016 JOHANN BONILLA MD Ot 401.9 HYPERTENSION NOS 08/03/2016 JOHANN BONILLA MD Ot 424.0 MITRAL VALVE DISORDER 08/03/2016 JOHANN BONILLA MD Ot V10.3 HX OF BREAST MALIGNANCY 08/03/2016 JOHANN BONILLA MD Ot V67.1 RADIOTHERAPY FOLLOW-UP 08/03/2016 JOHANN BONILLA MD Ot 244.9 HYPOTHYROIDISM NOS 08/03/2016 JOHANN BONILLA MD Ot 250.00 DIAB PRIMO WO COMPL, TYPE II OR UNSPEC TY 08/03/2016 JOHANN BONILLA MD Ot 272.0 PURE HYPERCHOLESTEROLEM 08/03/2016 JOHANN BONILLA MD Ot 300.00 ANXIETY STATE NOS 08/03/2016 JOHANN BONILLA MD Ot 365.9 GLAUCOMA NOS 08/03/2016 JOHANN BONILLA MD Ot 401.9 HYPERTENSION NOS 08/03/2016 JOHANN BONILLA MD Ot 424.0 MITRAL VALVE DISORDER 08/03/2016 JOHANN BONILLA MD Ot V13.89 PERSONAL HISTORY OF OTHER SPECIFIED DISE 08/03/2016 JOHANN BONILLA MD, Ot V58.69 OTH MED,LT,CURRENT USE 08/03/2016 JOHANN BONILLA MD, Ot V67.1 RADIOTHERAPY FOLLOW-UP 08/03/2016 JOHANN BONILLA MD Ot 793.89 OTH (ABN) FINDINGS ON RADIOLOGICAL EXAMI 08/03/2016 JOHANN BONILLA MD Ot 174.9 MALIGN NEOPL BREAST NOS 08/03/2016 JOHANN BONILLA MD, Ot V76.11 SCRN MAMMO-HIGH RISK PT, MALIGNANT NEOPL 08/03/2016 JOHANN BONILLA MD, Ot Z12.31 ENCNTR SCREEN MAMMOGRAM FOR MALIGNANT NE 08/03/2016 JOHANN BONILLA MD Ot Z85.3 PERSONAL HISTORY OF MALIGNANT NEOPLASM O 08/03/2016 ELISA JOHNSON MAIL SORTING SUPERVISOR Ot S83.261A PRPH TEAR OF LAT MENSC, CURRENT INJURY, 08/03/2016 ELISA JOHNSONP Ot X58.XXXA EXPOSURE TO OTHER SPECIFIED FACTORS, INI 08/03/2016 ELISA JOHNSON Ot Y99.8 OTHER EXTERNAL CAUSE STATUS 08/03/2016 JOHANN BONILLA MD Ot E03.9 HYPOTHYROIDISM, UNSPECIFIED 08/03/2016 JOHANN BONILLA MD Ot E11.9 TYPE 2 DIABETES MELLITUS WITHOUT COMPLIC 08/03/2016 JOHANN BONILLA MD Ot E78.0 PURE HYPERCHOLESTEROLEMIA 08/03/2016 JOHANN BONILLA MD Ot F41.9 ANXIETY DISORDER, UNSPECIFIED 08/03/2016 JOHANN BONILLA MD Ot H40.9 UNSPECIFIED GLAUCOMA 08/03/2016 JOHANN BONILLA MD Ot I10 ESSENTIAL (PRIMARY) HYPERTENSION 08/03/2016 JOHANN BONILLA MD Ot I34.8 OTHER NONRHEUMATIC MITRAL VALVE DISORDER 08/03/2016 JOHANN BONILLA MD Ot Z08 ENCNTR FOR FOLLOW-UP EXAM AFTER TRTMT FO 08/03/2016 JOHANN BONILLA MD Ot 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 08/03/2016 JOHANN BONILLA MD Ot Z85.3 PERSONAL HISTORY OF MALIGNANT NEOPLASM O 08/03/2016 JOHANN BONILLA MD Ot Z12.31 ENCNTR SCREEN MAMMOGRAM FOR MALIGNANT NE 08/03/2016 JOHANN BONILLA MD Ot Z85.3 PERSONAL HISTORY OF MALIGNANT NEOPLASM O 08/06/2016 JOHANN BONILLA MD Ot Z12.31 ENCNTR SCREEN MAMMOGRAM FOR MALIGNANT NE 08/06/2016 JOHANN BONILLA MD Ot Z85.3 PERSONAL HISTORY OF MALIGNANT NEOPLASM O 08/15/2016 JONNIE KAPADIA STEPHANIE R Ot R05 COUGH 08/15/2016 JONNIE KAPADIA STEPHANIE R Ot R50.9 FEVER, UNSPECIFIED 08/27/2016 JOHANN BONILLA MD Ot Z12.31 ENCNTR SCREEN MAMMOGRAM FOR MALIGNANT NE 08/27/2016 JOHANN BONILLA MD Ot Z85.3 PERSONAL HISTORY OF MALIGNANT NEOPLASM O 09/03/2016 JOHANN BONILLA MD Ot E03.9 HYPOTHYROIDISM, UNSPECIFIED 09/03/2016 JOHANN BONILLA MD Ot E11.9 TYPE 2 DIABETES MELLITUS WITHOUT COMPLIC 09/03/2016 JOHANN BONILLA MD Ot E78.0 PURE HYPERCHOLESTEROLEMIA * DO NOT USE * 09/03/2016 JOHANN BONILLA MD Ot F41.9 ANXIETY DISORDER, UNSPECIFIED 09/03/2016 JOHANN BONILLA MD Ot H40.9 UNSPECIFIED GLAUCOMA 09/03/2016 JOHANN BONILLA MD Ot I10 ESSENTIAL (PRIMARY) HYPERTENSION 09/03/2016 JOHANN BONILLA MD Ot I34.8 OTHER NONRHEUMATIC MITRAL VALVE DISORDER 09/03/2016 JOHANN BONILLA MD Ot Z08 ENCNTR FOR FOLLOW-UP EXAM AFTER TRTMT FO 09/03/2016 JOHANN BONILLA MD Ot 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 09/03/2016 JOHANN BONILLA MD Ot Z85.3 PERSONAL HISTORY OF MALIGNANT NEOPLASM O 09/05/2016 JONNIE KAPADIA, STEPHANIE R Ot R05 COUGH 09/05/2016 JONNIE KAPADIA, STEPHANIE R Ot R50.9 FEVER, UNSPECIFIED 09/26/2016 JONNIE KAPADIA STEPHANIE R Ot R05 COUGH 09/26/2016 JONNIE KAPADIA, STEPHANIE R Ot R50.9 FEVER, UNSPECIFIED 09/27/2016 JOHANN BONILLA MD Ot E03.9 HYPOTHYROIDISM, UNSPECIFIED 09/27/2016 JOHANN BONILLA MD Ot E11.9 TYPE 2 DIABETES MELLITUS WITHOUT COMPLIC 09/27/2016 JOHANN BONILLA MD Ot E78.00 PURE HYPERCHOLESTEROLEMIA, UNSPECIFIED 09/27/2016 JOHANN BONILLA MD, Ot F41.9 ANXIETY DISORDER, UNSPECIFIED 09/27/2016 JOHANN BONILLA MD Ot H40.9 UNSPECIFIED GLAUCOMA 09/27/2016 JOHANN BONILLA MD Ot I10 ESSENTIAL (PRIMARY) HYPERTENSION 09/27/2016 JOHANN BONILLA MD Ot I34.8 OTHER NONRHEUMATIC MITRAL VALVE DISORDER 09/27/2016 JOHANN BONILLA MD Ot Z08 ENCNTR FOR FOLLOW-UP EXAM AFTER TRTMT FO 09/27/2016 JOHANN BONILLA MD Ot 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 09/27/2016 JOHANN BONILLA MD Ot Z85.3 PERSONAL HISTORY OF MALIGNANT NEOPLASM O 11/06/2016 JOHANN BONILLA MD Ot E03.9 HYPOTHYROIDISM, UNSPECIFIED 11/06/2016 JOHANN BONILLA MD Ot E11.9 TYPE 2 DIABETES MELLITUS WITHOUT COMPLIC 11/06/2016 JOHANN BONILLA MD Ot E78.00 PURE HYPERCHOLESTEROLEMIA, UNSPECIFIED 11/06/2016 JOHANN BONILLA MD, Ot F41.9 ANXIETY DISORDER, UNSPECIFIED 11/06/2016 JOHANN BONILLA MD Ot H40.9 UNSPECIFIED GLAUCOMA 11/06/2016 JOHANN BONILLA MD Ot I10 ESSENTIAL (PRIMARY) HYPERTENSION 11/06/2016 JOHANN BONILLA MD Ot I34.8 OTHER NONRHEUMATIC MITRAL VALVE DISORDER 11/06/2016 JOHANN BONILLA MD Ot Z08 ENCNTR FOR FOLLOW-UP EXAM AFTER TRTMT FO 11/06/2016 JOHANN BONILLA MD Ot Z79.899 OTHER ALF (CURRENT) DRUG THERAPY 11/06/2016 JOHANN BONILLA MD Ot Z85.3 PERSONAL HISTORY OF MALIGNANT NEOPLASM O 11/07/2016 JOHANN BONILLA MD Ot E03.9 HYPOTHYROIDISM, UNSPECIFIED 11/07/2016 JOHANN BONILLA MD Ot E11.9 TYPE 2 DIABETES MELLITUS WITHOUT COMPLIC 11/07/2016 JOHANN BONILLA MD Ot E78.00 PURE HYPERCHOLESTEROLEMIA, UNSPECIFIED 11/07/2016 JOHANN BONILLA MD Ot F41.9 ANXIETY DISORDER, UNSPECIFIED 11/07/2016 JOHANN BONILLA MD Ot H40.9 UNSPECIFIED GLAUCOMA 11/07/2016 JOHANN BONILLA MD Ot I10 ESSENTIAL (PRIMARY) HYPERTENSION 11/07/2016 JOHANN BONILLA MD Ot I34.8 OTHER NONRHEUMATIC MITRAL VALVE DISORDER 11/07/2016 JOHANN BONILLA MD Ot Z08 ENCNTR FOR FOLLOW-UP EXAM AFTER TRTMT FO 11/07/2016 JOHANN BONILLA MD Ot 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 11/07/2016 JOHANN BONILLA MD Ot Z85.3 PERSONAL HISTORY OF MALIGNANT NEOPLASM O 11/19/2016 JONNIE KAPADIA, STEPHANIE R Ot R26.81 UNSTEADINESS ON FEET 11/23/2016 JONNIE KAPADIA, STEPHANIE R Ot R26.81 UNSTEADINESS ON FEET 11/28/2016 JONNIE KAPADIA, STEPHANIE R Ot R26.81 UNSTEADINESS ON FEET 11/30/2016 JONNIE KAPADIA, STEPHANIE R Ot I65.23 OCCLUSION AND STENOSIS OF BILATERAL ELIZONDO 11/30/2016 JONNIE KAPADIA, STEPHANIE R Ot R26.81 UNSTEADINESS ON FEET 11/30/2016 JONNIE KAPADIA STEPHANIE R Ot R42 DIZZINESS AND GIDDINESS 12/04/2016 JONNIE KAPADIA STEPHANIE R Ot I65.23 OCCLUSION AND STENOSIS OF BILATERAL ELIZONDO 12/04/2016 JONNIE KAPADIA, STEPHANIE R Ot R26.81 UNSTEADINESS ON FEET 12/04/2016 JONNIE KAPADIA, STEPHANIE R Ot R42 DIZZINESS AND GIDDINESS 12/18/2016 JONNIE KAPADIA STEPHANIE R Ot I65.23 OCCLUSION AND STENOSIS OF BILATERAL ELIZONDO 12/18/2016 JONNIE KAPADIA, STEPHANIE R Ot R26.81 UNSTEADINESS ON FEET 12/18/2016 JONNIE AKPADIA STEPHANIE R Ot R42 DIZZINESS AND GIDDINESS 08/06/2017 JOHANN BONILLA MD Ot Z12.31 ENCNTR SCREEN MAMMOGRAM FOR MALIGNANT NE 08/28/2017 JOHANN BONILLA MD Ot Z12.31 ENCNTR SCREEN MAMMOGRAM FOR MALIGNANT NE 09/18/2017 MALENA WEST MD Ot E03.9 HYPOTHYROIDISM, UNSPECIFIED 09/18/2017 MALENA WEST MD Ot E11.9 TYPE 2 DIABETES MELLITUS WITHOUT COMPLIC 09/18/2017 MALENA WEST MD Ot E78.00 PURE HYPERCHOLESTEROLEMIA, UNSPECIFIED 09/18/2017 MALENA WEST MD Ot F41.9 ANXIETY DISORDER, UNSPECIFIED 09/18/2017 MALENA WEST MD Ot H40.9 UNSPECIFIED GLAUCOMA 09/18/2017 MALENA WEST MD Ot I10 ESSENTIAL (PRIMARY) HYPERTENSION 09/18/2017 MALENA WEST MD Ot I34.8 OTHER NONRHEUMATIC MITRAL VALVE DISORDER 09/18/2017 MALENA WEST MD Ot J06.9 ACUTE UPPER RESPIRATORY INFECTION, UNSPE 09/18/2017 MALENA WEST MD Ot J32.9 CHRONIC SINUSITIS, UNSPECIFIED 09/18/2017 MALENA WEST MD, Ot Z08 ENCNTR FOR FOLLOW-UP EXAM AFTER TRTMT FO 09/18/2017 MALENA WEST MD Ot Z79.899 OTHER ALF (CURRENT) DRUG THERAPY 09/18/2017 MALENA WEST MD Ot Z85.3 PERSONAL HISTORY OF MALIGNANT NEOPLASM O 09/18/2017 MALENA WEST MD Ot Z86.73 PRSNL HX OF TIA (TIA), AND CEREB INFRC W 10/16/2017 MALENA WEST MD Ot E03.9 HYPOTHYROIDISM, UNSPECIFIED 10/16/2017 MLAENA WEST MD Ot E11.9 TYPE 2 DIABETES MELLITUS WITHOUT COMPLIC 10/16/2017 MALENA WEST MD Ot E78.00 PURE HYPERCHOLESTEROLEMIA, UNSPECIFIED 10/16/2017 MALENA WEST MD Ot F41.9 ANXIETY DISORDER, UNSPECIFIED 10/16/2017 MALENA WEST MD Ot H40.9 UNSPECIFIED GLAUCOMA 10/16/2017 MALENA WEST MD Ot I10 ESSENTIAL (PRIMARY) HYPERTENSION 10/16/2017 MALENA WEST MD Ot I34.8 OTHER NONRHEUMATIC MITRAL VALVE DISORDER 10/16/2017 MALENA WEST MD Ot J06.9 ACUTE UPPER RESPIRATORY INFECTION, UNSPE 10/16/2017 MALENA WEST MD Ot J32.9 CHRONIC SINUSITIS, UNSPECIFIED 10/16/2017 MALENA WEST MD Ot Z08 ENCNTR FOR FOLLOW-UP EXAM AFTER TRTMT FO 10/16/2017 XUMALENA Monreal MD, Ot 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 10/16/2017 MALENA WEST MD, Ot Z85.3 PERSONAL HISTORY OF MALIGNANT NEOPLASM O 10/16/2017 MALENA WEST MD, Ot Z86.73 PRSNL HX OF TIA (TIA), AND CEREB INFRC W 11/04/2017 MALENA WEST MD Ot E03.9 HYPOTHYROIDISM, UNSPECIFIED 11/04/2017 MALENA WEST MD Ot E11.9 TYPE 2 DIABETES MELLITUS WITHOUT COMPLIC 11/04/2017 MALENA WEST MD Ot E78.00 PURE HYPERCHOLESTEROLEMIA, UNSPECIFIED 11/04/2017 MALENA WEST MD, Ot F41.9 ANXIETY DISORDER, UNSPECIFIED 11/04/2017 MALENA WEST MD, Ot H40.9 UNSPECIFIED GLAUCOMA 11/04/2017 MALENA WEST MD Ot I10 ESSENTIAL (PRIMARY) HYPERTENSION 11/04/2017 MALENA WEST MD Ot I34.8 OTHER NONRHEUMATIC MITRAL VALVE DISORDER 11/04/2017 MALENA WEST MD Ot J06.9 ACUTE UPPER RESPIRATORY INFECTION, UNSPE 11/04/2017 MALENA WEST MD Ot J32.9 CHRONIC SINUSITIS, UNSPECIFIED 11/04/2017 MALENA WEST MD, Ot Z08 ENCNTR FOR FOLLOW-UP EXAM AFTER TRTMT FO 11/04/2017 MALENA WEST MD, Ot Z79.899 OTHER ALF (CURRENT) DRUG THERAPY 11/04/2017 MALENA WEST MD, Ot Z85.3 PERSONAL HISTORY OF MALIGNANT NEOPLASM O 11/04/2017 MALENA WEST MD, Ot Z86.73 PRSNL HX OF TIA (TIA), AND CEREB INFRC W 03/26/2018 JOHANN BONILLA MD Ot 244.9 HYPOTHYROIDISM NOS 03/26/2018 JOHANN BONILLA MD Ot 250.00 DIAB PRIMO WO COMPL, TYPE II OR UNSPEC TY 03/26/2018 JOHANN BONILLA MD Ot 272.0 PURE HYPERCHOLESTEROLEM 03/26/2018 JOHANN BONILLA MD Ot 300.00 ANXIETY STATE NOS 03/26/2018 JOHANN BONILLA MD Ot 365.9 GLAUCOMA NOS 03/26/2018 JOHANN BONILLA MD Ot 401.9 HYPERTENSION NOS 03/26/2018 JOHANN BONILLA MD Ot 424.0 MITRAL VALVE DISORDER 03/26/2018 JOHANN BONILLA MD Ot V10.3 HX OF BREAST MALIGNANCY 03/26/2018 JOHANN BONILLA MD Ot V67.1 RADIOTHERAPY FOLLOW-UP 03/26/2018 JOHANN BONILLA MD Ot 233.0 CA IN SITU BREAST 03/26/2018 JOHANN BONILLA MD Ot V67.9 FOLLOW-UP EXAM NOS 03/26/2018 JOHANN BONILLA MD Ot 244.9 HYPOTHYROIDISM NOS 03/26/2018 JOHANN BONILLA MD Ot 250.00 DIAB PRIMO WO COMPL, TYPE II OR UNSPEC TY 03/26/2018 JOHANN BONILLA MD Ot 272.0 PURE HYPERCHOLESTEROLEM 03/26/2018 JOHANN BONILLA MD Ot 300.00 ANXIETY STATE NOS 03/26/2018 JOHANN BONILLA MD Ot 365.9 GLAUCOMA NOS 03/26/2018 JOHANN BONILLA MD Ot 401.9 HYPERTENSION NOS 03/26/2018 JOHANN BONILLA MD Ot 424.0 MITRAL VALVE DISORDER 03/26/2018 JOHANN BONILLA MD Ot V10.3 HX OF BREAST MALIGNANCY 03/26/2018 JOHANN BONILLA MD Ot V67.1 RADIOTHERAPY FOLLOW-UP 03/26/2018 JOHANN BONILLA MD Ot 244.9 HYPOTHYROIDISM NOS 03/26/2018 JOHANN BONILLA MD Ot 250.00 DIAB PRIMO WO COMPL, TYPE II OR UNSPEC TY 03/26/2018 JOHANN BONILLA MD Ot 272.0 PURE HYPERCHOLESTEROLEM 03/26/2018 JOHANN BONILLA MD Ot 300.00 ANXIETY STATE NOS 03/26/2018 JOHANN BONILLA MD Ot 365.9 GLAUCOMA NOS 03/26/2018 JOHANN BONILLA MD Ot 401.9 HYPERTENSION NOS 03/26/2018 JOHANN BONILLA MD Ot 424.0 MITRAL VALVE DISORDER 03/26/2018 JOHANN BONILLA MD Ot V13.89 PERSONAL HISTORY OF OTHER SPECIFIED DISE 03/26/2018 JOHANN BONILLA MD Ot V58.69 OTH MED,LT,CURRENT USE 03/26/2018 JOHANN BONILLA MD Ot V67.1 RADIOTHERAPY FOLLOW-UP 03/26/2018 JOHANN BONILLA MD Ot 793.89 OTH (ABN) FINDINGS ON RADIOLOGICAL EXAMI 03/26/2018 JOHANN BONILLA MD Ot 174.9 MALIGN NEOPL BREAST NOS 03/26/2018 JOHANN BONILLA MD Ot V76.11 SCRN MAMMO-HIGH RISK PT, MALIGNANT NEOPL 03/26/2018 JOHANN BONILLA MD Ot Z12.31 ENCNTR SCREEN MAMMOGRAM FOR MALIGNANT NE 03/26/2018 JOHANN BONILLA MD Ot Z85.3 PERSONAL HISTORY OF MALIGNANT NEOPLASM O 03/26/2018 ELISA JOHNSON Ot S83.261A PRPH TEAR OF LAT MENSC, CURRENT INJURY, 03/26/2018 ELISA JOHNSON Ot X58.XXXA EXPOSURE TO OTHER SPECIFIED FACTORS, INI 03/26/2018 ELISA JOHNSON Ot Y99.8 OTHER EXTERNAL CAUSE STATUS 03/26/2018 JOHANN BONILLA MD Ot Z12.31 ENCNTR SCREEN MAMMOGRAM FOR MALIGNANT NE 03/26/2018 JOHANN BONILLA MD Ot Z85.3 PERSONAL HISTORY OF MALIGNANT NEOPLASM O 03/26/2018 JOHANN BONILLA MD Ot Z12.31 ENCNTR SCREEN MAMMOGRAM FOR MALIGNANT NE 03/26/2018 JONNIE KAPADIA, STEPHANIE R Ot R05 COUGH 03/26/2018 STEPHANIE CRISTINA MD R Ot R50.9 FEVER, UNSPECIFIED 03/26/2018 STEPHANIE CRISTINA MD R Ot I65.23 OCCLUSION AND STENOSIS OF BILATERAL ELIZONDO 03/26/2018 JONNIE KAPADIA, STEPHANIE R Ot R26.81 UNSTEADINESS ON FEET 03/26/2018 STEPHANIE CRISTINA MD R Ot R42 DIZZINESS AND GIDDINESS 03/26/2018 MALENA WEST MD Ot E03.9 HYPOTHYROIDISM, UNSPECIFIED 03/26/2018 MALENA WEST MD Ot E11.9 TYPE 2 DIABETES MELLITUS WITHOUT COMPLIC 03/26/2018 MALENA WEST MD Ot E78.00 PURE HYPERCHOLESTEROLEMIA, UNSPECIFIED 03/26/2018 MALENA WEST MD Ot F41.9 ANXIETY DISORDER, UNSPECIFIED 03/26/2018 MALENA WEST MD Ot H40.9 UNSPECIFIED GLAUCOMA 03/26/2018 MALENA WEST MD Ot I10 ESSENTIAL (PRIMARY) HYPERTENSION 03/26/2018 MALENA WEST MD Ot I34.8 OTHER NONRHEUMATIC MITRAL VALVE DISORDER 03/26/2018 MALENA WEST MD, Ot J06.9 ACUTE UPPER RESPIRATORY INFECTION, UNSPE 03/26/2018 MALENA WEST MD, Ot J32.9 CHRONIC SINUSITIS, UNSPECIFIED 03/26/2018 MALENA WEST MD, Ot Z08 ENCNTR FOR FOLLOW-UP EXAM AFTER TRTMT FO 03/26/2018 MALENA WEST MD, Ot 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 03/26/2018 MALENA WEST MD, Ot Z85.3 PERSONAL HISTORY OF MALIGNANT NEOPLASM O 03/26/2018 MALENA WEST MD, Ot Z86.73 PRSNL HX OF TIA (TIA), AND CEREB INFRC W 03/27/2018 STEPHANIE CRISTINA MD R Ot I08.3 COMB RHEUMATIC DISORD OF MITRAL, AORTIC 03/27/2018 JONNIE KAPADIA STEPHANIE R Ot R06.09 OTHER FORMS OF DYSPNEA 04/01/2018 STEPHANIE CRISTINA MD R Ot I08.3 COMB RHEUMATIC DISORD OF MITRAL, AORTIC 04/01/2018 JONNIE KAPADIA STEPHANIE R Ot R06.09 OTHER FORMS OF DYSPNEA 04/15/2018 STEPHANIE CRISTINA MD R Ot I08.3 COMB RHEUMATIC DISORD OF MITRAL, AORTIC 04/15/2018 JONNIE KAPADIA STEPHANIE R Ot R06.09 OTHER FORMS OF DYSPNEA 05/02/2018 LEONOR KAPADIA FACC, ALI FACP CCDS Ot E11.9 TYPE 2 DIABETES MELLITUS WITHOUT COMPLIC 05/02/2018 LEONOR KAPADIA FACC, ALI FACP CCDS Ot E78.2 MIXED HYPERLIPIDEMIA 05/02/2018 LEONOR KAPADIA FACC, ALI FACP CCDS Ot I10 ESSENTIAL (PRIMARY) HYPERTENSION 05/02/2018 LEONOR KAPADIA FACC, ALI FACP CCDS Ot I27.20 PULMONARY HYPERTENSION, UNSPECIFIED 05/02/2018 LEONOR KAPADIA FACC, ALI FACP CCDS Ot R06.02 SHORTNESS OF BREATH 05/02/2018 LEONOR KAPADIA FACC, ALI FACP CCDS Ot R53.83 OTHER FATIGUE 05/06/2018 STEPHANIE CRISTINA MD R Ot I08.3 COMB RHEUMATIC DISORD OF MITRAL, AORTIC 05/06/2018 JONNIE KAPADIA STEPHANIE R Ot R06.09 OTHER FORMS OF DYSPNEA 05/07/2018 ADAL HENNESSY APRN Ot G47.10 HYPERSOMNIA, UNSPECIFIED 05/07/2018 ADAL HENNESSY APRN Ot I27.20 PULMONARY HYPERTENSION, UNSPECIFIED 05/07/2018 ADAL HENNESSY APRN Ot I63.9 CEREBRAL INFARCTION, UNSPECIFIED 05/07/2018 ADAL HENNESSY APRN Ot R06.02 SHORTNESS OF BREATH Procedures There is no data. Results Test Result Range Automated blood complete blood count (hemogram) panel - 08/13/16 11:55 Blood leukocytes automated count (number/volume) 10.7 10*3/uL 4.3-11.0 Blood erythrocytes automated count (number/volume) 4.72 10*6/uL 4.35-5.85 Venous blood hemoglobin measurement (mass/volume) 14.2 g/dL 11.5-16.0 Blood hematocrit (volume fraction) 43 % 35-52 Automated erythrocyte mean corpuscular volume 92 [foz_us] 80-99 Automated erythrocyte mean corpuscular hemoglobin (mass per erythrocyte) 30 pg 25-34 Automated erythrocyte mean corpuscular hemoglobin concentration measurement ( mass/volume) 33 g/dL 32-36 Automated erythrocyte distribution width ratio 13.1 % 10.0-14.5 Automated blood platelet count (count/volume) 298 10*3/uL 130-400 Automated blood platelet mean volume measurement 9.9 [foz_us] 7.4-10.4 Encounters ACCT No. Visit Date/Time Discharge Status Pt. Type Provider Facility Loc./Unit Complaint [id number] 05/06/2018 11:20:00 05/06/2018 12:05:00 DIS Outpatient ADAL HENNESSY APRN [facility] SLEEP SUSPECTED SLEEP APNEA [id number] 05/01/2018 06:57:00 05/01/2018 23:59:59 CLS Outpatient LEONOR KAPADIA FACC, HEATHER FACDeepak CCDS [facility] CARD TIREDNESS [id number] 03/26/2018 08:25:00 03/26/2018 23:59:59 CLS Outpatient STEPHANIE CRISTINA MD [facility] CARD DYSPNEA ON EFFORT [id number] 11/05/2017 00:08:00 11/05/2017 23:59:59 CLS Preadmit MALENA WEST MD [facility] ONC [id number] 08/06/2017 08:42:00 11/04/2017 00:01:00 DIS Outpatient MALENA WEST MD [facility] ONC [id number] 08/05/2017 09:40:00 08/05/2017 23:59:59 CLS Outpatient JOHANN BONILLA MD [facility] RAD ENCOUNTER FOR SCREENING KALPESH FOR BREAST CANCER [id number] 11/28/2016 08:41:00 11/28/2016 23:59:59 CLS Outpatient STEPHANIE CRISTINA MD [facility] RAD R26.81,R42 [id number] 08/08/2016 08:43:00 11/06/2016 00:01:00 DIS Outpatient JOHANN BONILLA MD [facility] ONC [id number] 08/13/2016 11:36:00 08/13/2016 23:59:59 CLS Outpatient STEPHANIE CRISTINA MD [facility] RAD PERSISTANT COUGH X 2 WEEKS,FEVER [id number] 08/03/2016 09:26:00 08/03/2016 23:59:59 CLS Outpatient JOHANN BONILLA MD [facility] RAD SCREENING [id number] 08/10/2015 08:48:00 11/08/2015 00:01:00 DIS Outpatient JOHANN BONILLA MD [facility] ONC [id number] 08/02/2015 09:08:00 08/02/2015 23:59:59 CLS Outpatient JOHANN BONILLA MD [facility] RAD SCREENING [id number] 06/02/2015 15:19:00 06/02/2015 23:59:59 CLS Outpatient ELISA JOHNSON [facility] RAD LATERAL MENISCUS TEAR [id number] 08/10/2014 08:39:00 11/08/2014 00:01:00 DIS Outpatient JHOANN BONILLA MD [facility] ONC [id number] 08/02/2014 09:32:00 08/02/2014 23:59:59 CLS Outpatient JOHANN BONILLA MD [facility] RAD SCREENING [id number] 07/23/2014 02:46:00 07/23/2014 04:36:00 DIS Emergency TRANG WOODS DO [facility] ER HIGH BLOOD PRESSURE [id number] 02/24/2014 09:24:00 02/24/2014 23:59:59 CLS Outpatient JOHANN BONILLA MD [facility] ONC [id number] 08/26/2013 09:15:00 08/26/2013 23:59:59 CLS Outpatient JOHANN BONILLA MD [facility] ONC [id number] 08/03/2013 13:00:00 08/03/2013 23:59:59 ALEXA Outpatient JOHANN BONILLA MD [facility] RAD FOLLOW-UP [id number] 02/10/2013 08:46:00 02/10/2013 23:59:59 ALEXA Outpatient JOHANN BONILLA MD [facility] ONC [id number] 02/02/2013 07:58:00 02/02/2013 23:59:59 ALEXA Outpatient JOHANN BONILLA MD [facility] RAD SIX MONTH FOLLOW-UP,DCIS LT BREAST [id number] 05/13/2018 08:07:00 ACT Outpatient LEONOR KAPADIA FACC, HEATHER FLYNN CCDS [facility] CATH ABNORMAL STRESS TEST,DM II, HTN , HL, TIREDNESS [id number] 08/02/2015 09:09:00 Document Registration [id number] 08/02/2015 09:09:00 Document Registration [id number] 08/13/2012 09:55:00 Document Registration [id number] 08/04/2012 08:37:00 Document Registration [id number] 05/14/2012 09:57:00 Document Registration [id number] 02/20/2012 10:19:00 Document Registration [id number] 02/11/2012 12:47:00 Document Registration [id number] 11/21/2011 09:17:00 Document Registration [id number] 11/05/2011 12:25:00 Document Registration [id number] 04/19/2011 17:44:00 Document Registration [id number] 04/19/2011 15:49:00 Document Registration [id number] 04/11/2011 16:58:00 Document Registration [id number] 04/10/2011 13:53:00 Document Registration [id number] 03/26/2011 10:40:00 Document Registration [id number] 07/05/2010 14:48:00 Document Registration [id number] 03/30/2010 09:05:00 Document Registration [id number] 08/10/2014 08:39:28 ACT Document Registration
[2018-05-13] MEDS ORDERED: MIDAZOLAM 5 MG/5 ML (VERSED) VIAL ONE (08:51)
[2018-05-13 08:52] LABS: PROTHROMBIN TIME PATIENT 13.1 SEC (12.2-14.7)
[2018-05-13] MEDS ORDERED: diphenhydrAMINE 50 MG/ML INJ (BENADRYL) ONE (08:52)
[2018-05-13 08:59] LABS: ALANINE AMINOTRANSFERASE 12 U/L (0-55); ALBUMIN 4.7 GM/DL (3.2-4.5); ALKALINE PHOSPHATASE 66 U/L (40-136); BILIRUBIN,TOTAL 0.6 MG/DL (0.1-1.0); BUN/CREATININE RATIO 22; CALCIUM 10.7 MG/DL (8.5-10.1); CARBON DIOXIDE 24 MMOL/L (21-32); CHLORIDE 105 MMOL/L (98-107); CHOLESTEROL 319 MG/DL (< 200); CREATININE SERUM 0.95 MG/DL (0.60-1.30); GFR ESTIMATED 58; GLUCOSE 143 MG/DL (70-105); HDL CHOLESTEROL 42 MG/DL (40-60); POTASSIUM 4.6 MMOL/L (3.6-5.0); SODIUM 141 MMOL/L (135-145); TOTAL PROTEIN 8.2 GM/DL (6.4-8.2); TRIGLYCERIDES 250 MG/DL (<150); VLDL CHOLESTEROL 50 MG/DL (5-40)
[2018-05-13] MEDS ORDERED: MULT-178 PO (09:08)
[2018-05-13] MEDS ORDERED: BIMA2.5D4 OU (09:08)
[2018-05-13] MEDS ORDERED: AFLI2VIA IO (09:08)
[2018-05-13] MEDS ORDERED: PROM25TA14 PO (09:08)
[2018-05-13] MEDS ORDERED: KRIL1CAP18 PO (09:08)
[2018-05-13] MEDS ORDERED: MELA1TAB8 PO (09:08)
[2018-05-13] MEDS ORDERED: OLOP2.5D5 OU (09:08)
--- NOTE | 2018-05-13 09:29 | Cardiac Procedure Note-CS/ASA ---
Pre-Procedure Note Pre-Op Procedure Note H&P Reviewed The H&P was reviewed, patient examined and no changes noted. Date H&P Reviewed: May 13, 2018 Time H&P Reviewed: 09:29 Conscious Sedation Pre-Proced Time 09:29 ASA Score 3 For ASA 3 and 4: Consider anesthesia and medical clearance. Also, for patients with a history of failed moderate sedation consider anesthesia. Airway Lungs Heart ASA score ASA 1: a normal healthy patient ASA 2: a patient with a mild systemic disease (mid diabetes, controlled hypertension, obesity ASA 3: a patient with a severe systemic disease that limits activity (angina , COPD, prior Myocardial infarction) ASA 4: a patient with an incapacitating disease that is a constant threat to life (CHF, renal failure) ASA 5: a moribund patient not expected to survive 24 hrs. (ruptured aneurysm) ASA 6: a declared brain patient whose organs are being harvested. For emergent operations, add the letter E after the classification Mallampati Classification Grade 2 Sedation Plan Analgesia, Amnesia, Plan communicated to team members, Discussed options with patient/fam, Discussed risks with patient/fam The patient is an appropriate candidate to undergo the planned procedure, sedation, and anesthesia. The patient immediately re-assessed prior to indication. HEATHER GALVEZ MD FACP FAC CCDS May 13, 2018 09:29
[2018-05-13] MEDS ORDERED: EPTIFIBATIDE DRIP 100 ML IV ONE (09:43)
[2018-05-13] MEDS ORDERED: HEParin 1000 UNIT/ML (10ML VIAL) FOR BOLUS ONE (09:43)
[2018-05-13] MEDS ORDERED: EPTIFIBATIDE BOLUS 20 ML IV ONE (09:44)
[2018-05-13] MEDS ORDERED: NITRO DRIP 25000 MCG/D5W 250 ML IV ONE (09:49)
[2018-05-13] MEDS ORDERED: MIDAZOLAM 2 MG/2 ML (VERSED) VIAL ONE (10:08)
[2018-05-13] MEDS ORDERED: CLOPIDOGREL 300 MG (PLAVIX) TABLET PO ONE (10:37)
[2018-05-13] MEDS ORDERED: ASPIRIN 81 MG CHEW (CHILDREN'S ASA) ONE (10:38)
[2018-05-13] MEDS ORDERED: NS IV 1000 ML 1,000 ML IV SCH (10:53)
[2018-05-13] MEDS ORDERED: meTOproloL SUCCINATE 50 MG (TOPROL XL) TAB PO NR (11:00)
[2018-05-13] MEDS ORDERED: PATIENT MAY USE OWN MEDS, ALL PO SCH (11:00)
[2018-05-13] MEDS ORDERED: ONDANSETRON 4 MG/2 ML (SDV) Z0FRAN ONE (11:12)
--- NOTE | 2018-05-13 11:35 | CARDIAC CATHETERIZATION ---
DATE OF SERVICE: 05/13/2018 CARDIAC CATHETERIZATION AND CORONARY INTERVENTION REPORT The patient is a 72-year-old lady with multiple coronary artery disease risk factors who has had the symptoms of shortness of breath. A myocardial perfusion imaging study was indicative of a basal inferior ischemia. Cardiac catheterization was carried out today after having obtained informed consent. PROCEDURE: She was brought to the cardiac catheterization laboratory in a fasting state. Right groin was prepped and draped in the usual sterile fashion. Lidocaine 1% with local anesthesia. Modified Seldinger technique was used to advance a 5-Portuguese sheath in the right femoral artery, 5-Portuguese JL4 catheter was left coronary angiography, 5-Portuguese JR4 catheter was used for right coronary angiography. A 5-Portuguese pigtail catheter was used for left heart catheterization and left ventricular angiography. Subsequently, percutaneous intervention was carried out to the left anterior descending artery, as described below. PERCUTANEOUS INTERVENTION TO THE LEFT ANTERIOR DESCENDING ARTERY: We exchanged the sheath over a wire for a 6-Portuguese sheath. We gave a double bolus of Integrilin and Integrilin infusion was continued throughout the procedure. We gave 6000 units of intravenous heparin. We used a 6-Portuguese JL4 guide catheter to engage the left coronary artery. We advanced a ChoICE floppy wire across the lesion in the left anterior descending artery and the tip was placed in the distal vessel. We carried out balloon angioplasty with Emerge 2.0 x 20 mm balloon in the mid and the proximal left anterior descending artery. This reduced the lesions in the mid and proximal left anterior descending artery from 90% to approximately 60% to 70%. Because of marked vessel tortuosity and severe proximal coronary calcification, we were not able to advance stents into the proximal and mid lesions. This was despite balloon angioplasty at the site of the lesions. Angioplasty equipment was removed. Angiography of right femoral artery was carried out through the sheath. Mynx was used to achieve hemostasis. HEMODYNAMICS: Left ventricular end-diastolic pressure following coronary angiography was 6 mmHg. There is no significant pressure gradient on pullback across the aortic valve. Ascending aortic pressure was 167/80 with a mean of 62 mmHg. CORONARY ANGIOGRAPHY: Mild coronary calcification is present in the proximal coronary vessels. Left anterior descending artery had 90% proximal and mid vessel stenosis and multiple 70% stenoses in the mid and distal part of the left anterior descending artery. Following balloon angioplasty in the proximal and mid left anterior descending artery, the lesions were reduced 60% to 70% stenoses. Stenting could not be accomplished due to marked tortuosity and severe proximal coronary calcification involving the left anterior descending. The left circumflex artery is nondominant and has diffuse moderate disease. Right coronary artery is dominant and is occluded in its proximal portion. There are heavy left to right collaterals. LEFT VENTRICULAR ANGIOGRAPHY: Left ventricular angiography was carried out in the right anterior oblique projection. Global left ventricular systolic function is normal. No distinct regional wall motion abnormalities are seen. Left ventricular ejection fraction approximately 65%. There is no significant mitral regurgitation seen on this study. CONCLUSIONS: 1. Coronary artery disease consisting of severe proximal and mid vessel disease of the left anterior descending artery. Following balloon angioplasty, stenoses in the proximal and the mid left anterior descending artery were reduced from more than 90% to less than 60% to 70%. The right coronary artery is chronically occluded and collateralized from the left coronary system. The rest of the coronary vessels have diffuse moderate disease. 2. Normal global left ventricular systolic function with ejection fraction approximately 65%. 3. Normal left ventricular end-diastolic pressure. 4. No significant mitral regurgitation. DISCUSSION AND RECOMMENDATIONS: Therapy with dual antiplatelet agents, beta blockers, statins are being provided. She is being hospitalized for overnight observation. Job ID: [id number] DocumentID: [id number] Dictated Date: 05/13/2018 10:46:39 Marking Machine Tender Date: 05/13/2018 11:35:03 Dictated By: HEATHER GALVEZ MD, MA, FACP, FACC, MTDD
[2018-05-13 12:00] VITALS: BP 116/65
[2018-05-13 13:00] VITALS: BP 117/68
[2018-05-13] MEDS: inSUlin ASPART (NovoLOG) 1 UNIT/0.01 ML (CHARGE PER UNIT) SC SCH ×3 (13:14→21:28)
[2018-05-13] MEDS: ceTIRizine 10 MG (ZyrTEC) TAB NON-FORMULARY PO SCH (13:18)
[2018-05-13 14:00] VITALS: BP 126/67
[2018-05-13 15:00] VITALS: BP 123/58
[2018-05-13 20:00] VITALS: BP 123/73
[2018-05-13] MEDS ORDERED: ATORVASTATIN 40 MG (LIPITOR) TABLET PO SCH (21:00)
[2018-05-13] MEDS: DORZOLAMIDE/TIMOLOL (COSOPT) 2-0.68% 10 ML BTL OU SCH (21:28)
[2018-05-14] VITALS: BP 126/63
[2018-05-14 04:00] VITALS: BP 123/73
[2018-05-14 04:04] LABS: HEMOGLOBIN 10.8 G/DL (11.5-16.0); MEAN PLATELET VOLUME 10.7 FL (7.4-10.4); RED BLOOD COUNT 3.48 10^6/uL (4.35-5.85); RED CELL DISTRIBUTION WIDTH 13.8 % (10.0-14.5); WHITE BLOOD COUNT 11.7 10^3/uL (4.3-11.0)
[2018-05-14 04:47] LABS: BUN/CREATININE RATIO 29; CALCIUM 9.4 MG/DL (8.5-10.1); CARBON DIOXIDE 21 MMOL/L (21-32); CHLORIDE 108 MMOL/L (98-107); CREATININE SERUM 0.83 MG/DL (0.60-1.30); GFR ESTIMATED > 60; GLUCOSE 117 MG/DL (70-105); POTASSIUM 4.2 MMOL/L (3.6-5.0); SODIUM 140 MMOL/L (135-145)
[2018-05-14] MEDS: inSUlin ASPART (NovoLOG) 1 UNIT/0.01 ML (CHARGE PER UNIT) SC SCH (06:22)
[2018-05-14] MEDS ORDERED: LEVOTHYROXINE 75 MCG (LEVOTHROID) TABLET PO SCH (06:30)
[2018-05-14] MEDS: DORZOLAMIDE/TIMOLOL (COSOPT) 2-0.68% 10 ML BTL OU SCH (06:30)
[2018-05-14] MEDS: ceTIRizine 10 MG (ZyrTEC) TAB NON-FORMULARY PO SCH (08:18)
[2018-05-14] MEDS ORDERED: NON-FORMULARY MEDICATION 1 EA EA (Enalapril Maleate 10 MG) PO SCH (09:00)
[2018-05-14] MEDS ORDERED: ASPIRIN 81 MG CHEW (CHILDREN'S ASA) PO SCH (09:00)
[2018-05-14] MEDS ORDERED: meTOproloL SUCCINATE 50 MG (TOPROL XL) TAB PO SCH (09:00)
[2018-05-14] MEDS ORDERED: ENALAPRIL 10 MG (VASOTEC) TAB PO SCH (09:00)
[2018-05-14] MEDS ORDERED: CLOPIDOGREL 75 MG (PLAVIX) TABLET PO SCH ×2 (09:00)
[2018-05-14] MEDS ORDERED: ROSU10TA PO (09:49)
[2018-05-14] MEDS ORDERED: CLOP75TA28 PO (09:49)
[2018-05-14] MEDS ORDERED: METO-370 PO (09:49)
[2018-05-14] MEDS ORDERED: CLOP75TA69 PO (09:49)
[2018-05-14] MEDS ORDERED: ASPI-999 PO (09:49)
--- NOTE | 2018-05-14 09:50 | Discharge Inst-Post CATH ---
Discharge Inst-CATH Post Cardiac Cath D/C Inst Follow Up/Plan F/u with Dr Tinsley in 2 weeks CARDIAC CATH DISCHARGE INSTRUCTIONS *Hold Metformin for 72 hours post heart cath. ACTIVITY * Go Home directly and rest. * Limit activity of the leg (or wrist if it was used) for 7 days including aerobics, swimming, jogging, bicycling, etc. * Restrict stair-climbing for 7 days if possible, if not, climb up with your non -cath leg, then bring together on the same step. * Avoid lifting, pushing, pulling or excessive movement of the affected extremity for 7 days. * Customary sexual activity may be resumed after 2 days-use caution not to use a position that strains or causes pain to the affected extremity. * No driving for 24 hours. * NO SMOKING. * Avoid straining for bowel movements for 7 days. * Gentle walking on level ground is allowed. * Returning to work will depend on the type of procedure and the results. Your doctor will discuss this with you. CALL YOUR DOCTOR FOR ANY OF THE FOLLOWING: *If bleeding from the puncture site occurs- Apply gentle pressure to site with clean cloth and call your doctor or EMS. * If a knot or lump forms under the skin, increases in size, or causes pain. * If bruising appears to be worsening or moving further down your leg instead of disappearing. * Temperature above 101 F. CARE OF YOUR GROIN INCISION; * Bruising or purple discoloration of the skin near the puncture site is common. * You may shower only, no bathtub bathing for 5 days. Be careful to avoid slipping as your leg may feel stiff. * If a closure device was used on your femoral artery, please see the attached guide regarding care of the device and your leg. * Leave the dressing on, until removed by office staff. CARE OF YOUR WRIST INCISION; * Bruising or purple discoloration of the skin near the puncture site is common. * You may shower. * DO NOT submerge wrist. * Leave dressing on, until removed by office staff.. HEATHER TINSLEY MD [facility] CCDS May 14, 2018 09:50
--- NOTE | 2018-05-14 09:51 | Discharge Inst-Cardiology ---
Discharge Inst-Cardiac Discharge Medications New Medications: Aspirin (Aspirin) 81 Mg Tab.chew 81 MG PO DAILY for 90 Days, #90 TAB Clopidogrel Bisulfate (Plavix) 75 Mg Tablet 75 MG PO DAILY for 30 Days, #30 TAB 5 Refills Rosuvastatin Calcium (Crestor) 10 Mg Tablet 10 MG PO HS for 30 Days, #30 TAB Clopidogrel Bisulfate (Clopidogrel) 75 Mg Tablet 75 MG PO DAILY for 30 Days, #30 TAB 5 Refills Metoprolol Succinate (Metoprolol Succinate) 50 Mg Tab.er.24h 50 MG PO DAILY for 30 Days, #30 TAB 5 Refills Continued Medications: Aflibercept (Eylea) 2 Mg/0.05 Ml Vial 2 MG IO q6 weeks, VIAL Bimatoprost (Lumigan) 2.5 Ml Drops 1 DROP OU HS, DROPS Cetirizine Hcl (Zyrtec) 10 Mg Tablet 10 MG PO DAILY Dorzolamide/Timolol (Cosopt) 10 Ml Soln 1 DROP OU Q12HR both eyes Enalapril Maleate (Enalapril Maleate) 10 Mg Tablet 10 MG PO DAILY, #15 TAB Krill/Om-3/Dha/Epa/Phospho/Ast (Krill Oil 1,000 mg Softgel) 1 Each Capsule 2 EACH PO BID, CAP Levothyroxine Sodium (Synthroid) 75 Mcg Tablet 75 MCG PO DAILY Melatonin (Melatonin) 1 Mg Tablet 1 MG PO DAILY, TAB Metformin Hcl (Glucophage) 500 Mg Tab 500 MG PO BID Multivitamin (Multiple Vitamins) 1 Each Tablet 1 EACH PO DAILY, TAB Olopatadine HCl (Pazeo) 2.5 Ml Drops 1 DROP OU DAILY, DROPS Promethazine HCl (Promethazine Tablet) 25 Mg Tablet 25 MG PO DAILY PRN for NAUSEA/VOMITING, TAB Discontinued Medications: Aspirin (Low Dose Aspirin) 81 Mg Tablet. 81 MG PO DAILY Patient Instructions Patient Instructions: Hold metformin until the morning of 05/16/18, then resume previous home dose HEATHER GALVEZ MD [facility] CCDS May 14, 2018 09:51
--- NOTE | 2018-05-14 09:58 | Progress Note-Cardiology ---
Cardiology SOAP Progress Note Subjective: No cp or palp or syncope or shortness of breath or groin discomfort. Wishes to go home Objective: I&O/Vital Signs 05/14/18 05/14/18 05/14/18 05/14/18 01:04 04:00 07:00 08:00 Temp 98.1 98.2 Pulse 55 62 54 Resp 18 B/P (MAP) 123/73 (90) Pulse Ox 98 O2 Delivery Room Air 05/14/18 05/14/18 08:30 10:30 Pulse 54 Resp 18 B/P (MAP) 123/73 Pulse Ox 98 98 O2 Delivery Room Air Room Air O2 Flow Rate 0.00 05/14/18 00:00 Intake Total 1000 ml Balance 1000 ml Weight (Pounds): 201 Weight (Ounces): 0.0 Weight (Calculated Kilograms): 91.145049 Condition: DP/PT pulses palpable Bruising: mild bruising Constitutional: AAO x 3, well-developed, well-nourished Respiratory: No accessory muscle use; other (good bilat air entry) Cardiovascular: regular rate-rhythm, S1 and S2, systolic murmur (faint UNA at card base) Gastrointestional: No tender; soft; No guarding, No rebound; audible bowel sounds Extremities: No clubbing, No cyanosis, No significant edema Neurologic/Psychiatric: oriented x 3, grossly intact, power is 5/5 both on sides Skin: No rash on exposed areas, No ulcerations on exposed areas Results/Procedures: Labs Laboratory Tests 05/13/18 17:13: Glucometer 165H 05/13/18 21:00: Glucometer 165H 05/14/18 03:50: White Blood Count 11.7H, Red Blood Count 3.48L, Hemoglobin 10.8#L, Hematocrit 33L, Mean Corpuscular Volume 95, Mean Corpuscular Hemoglobin 31, Mean Corpuscular Hemoglobin Concent 33, Red Cell Distribution Width 13.8, Platelet Count 245, Mean Platelet Volume 10.7H, Sodium Level 140, Potassium Level 4.2, Chloride Level 108H, Carbon Dioxide Level 21, Anion Gap 11, Blood Urea Nitrogen 24H, Creatinine 0.83, Estimat Glomerular Filtration Rate > 60, BUN/Creatinine Ratio 29, Glucose Level 117H, Calcium Level 9.4 A/P: Assessment: CAD. Following MPI of 05/01/18 that showed a small amount of basal inf ichemia and LVEF 64%, card cath on 05/13/18 showed the following: Coronary artery disease consisting of severe proximal and mid vessel disease of the left anterior descending artery. Following balloon angioplasty, stenosis in the proximal and the mid left anterior descending artery were reduced from more than 90% to less than 60to 70%. The right coronary artery is chronically occluded and collateralized from the left coronary system. The rest of the coronary vessels have diffuse moderate disease. Normal global left ventricular systolic function with ejection fraction approximately 65%. Normal left ventricular end-diastolic pressure. 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 She is willing to try another statin (other than atorvastatin that resulted in nonspecific symptoms previously) * Advised to hold off on metformin for 72 hrs post cath * Close outpt f/u * To ER for any symptoms * Questions answered in detail HEATHER GALVEZ MD FACP [facility] CCDS May 14, 2018 09:58
[2018-05-14 10:30] VITALS: BP 123/73
== END 2018-05-14 10:30 | disposition home or self-care (01) ==
LOC: CATH 08:07 → ICU 11:45 → CATH 05-14 10:30
PROVIDERS: ATTEND Internal Medicine Cardiovascular Disease
DX: I25.10 Atherosclerotic heart disease of native coronary artery without angina pectoris (principal); I10 Essential (primary) hypertension; E78.5 Hyperlipidemia, unspecified; E11.9 Type 2 diabetes mellitus without complications; E03.9 Hypothyroidism, unspecified; Z87.891 Personal history of nicotine dependence; Z85.3 Personal history of malignant neoplasm of breast; K59.00 Constipation, unspecified; R11.0 Nausea; R10.13 Epigastric pain; Z79.84 Long term (current) use of oral hypoglycemic drugs; Z79.82 Long term (current) use of aspirin; Z79.899 Other long term (current) drug therapy
CPT/HCPCS: 36415; 80048; 80053; 80061; 82962; 85027; 85610; 85730; 87081; 93005; 93458

== ENCOUNTER → 2018-08-06 | Outpatient (CLI) | payer MEDICARE, OTHER ==
[~2018-08-06] MED LIST changes: +AFLI2VIA IO; +ASPI-999 PO; +BIMA2.5D4 OU; +CLOP75TA28 PO; +CLOP75TA69 PO; +KRIL1CAP18 PO; +MELA1TAB8 PO; +METO-370 PO; +MULT-178 PO; +OLOP2.5D5 OU; +PROM25TA14 PO; +ROSU10TA PO
--- NOTE | 2018-08-06 21:25 | Diagnostic Imaging Report ---
INDICATION: Routine screening. Comparison is made with prior mammograms from 08/05/2017 and 08/03/2016. 2-D and 3-D bilateral screening mammography was performed with computer-aided Detection (CAD) system. FINDINGS: Right breast is heterogeneously dense, limiting sensitivity of mammography. The overall parenchymal pattern is stable. Left breast again demonstrates post therapeutic changes. There are dystrophic calcifications in the left breast. No spiculated mass or malignant-appearing microcalcifications are detected. The axillae are unremarkable. Benign-appearing nodule in the superior right breast is stable. IMPRESSION: No mammographic features suspicious for malignancy are identified. ACR BI-RADS Category 2: Benign findings. Result letter will be mailed to the patient. Note: At least 10% of breast cancer is not imaged by mammography. Dictated by: Dictated on workstation # [id number]
== END ==
LOC: RAD 07:50
PROVIDERS: ATTEND Internal Medicine Hematology & Oncology
DX: Z12.31 Encounter for screening mammogram for malignant neoplasm of breast (principal)
CPT/HCPCS: 77067

== ENCOUNTER → 2018-08-12 | Outpatient (CLI) | payer MEDICARE, OTHER ==
[2018-08-12 09:09] LABS: BASOPHILS # (AUTO) 0.1 10^3/uL (0.0-0.1); BASOPHILS % (AUTO) 1 % (0-10); EOSINOPHILS # (AUTO) 0.3 10^3/uL (0.0-0.3); EOSINOPHILS % (AUTO) 5 % (0-10); HEMATOCRIT 42 % (35-52); HEMOGLOBIN 13.2 G/DL (11.5-16.0); LYMPHOCYTES # (AUTO) 2.3 X 10^3 (1.0-4.0); LYMPHOCYTES % (AUTO) 36 % (12-44); MEAN CORPUSCULAR HEMOGLOBIN 30 PG (25-34); MEAN CORPUSCULAR HGB CONC 32 G/DL (32-36); MEAN CORPUSCULAR VOLUME 95 FL (80-99); MEAN PLATELET VOLUME 10.2 FL (7.4-10.4); MONOCYTES # (AUTO) 0.6 X 10^3 (0.0-1.0); MONOCYTES % (AUTO) 9 % (0-12); NEUTROPHILS # (AUTO) 3.2 X 10^3 (1.8-7.8); NEUTROPHILS % (AUTO) 50 % (42-75); PLATELET COUNT 232 10^3/uL (130-400); RED CELL DISTRIBUTION WIDTH 13.3 % (10.0-14.5); WHITE BLOOD COUNT 6.4 10^3/uL (4.3-11.0)
[2018-08-12 09:31] LABS: ALBUMIN 4.4 GM/DL (3.2-4.5); BILIRUBIN,TOTAL 0.6 MG/DL (0.1-1.0); CALCIUM 9.9 MG/DL (8.5-10.1); CREATININE SERUM 0.96 MG/DL (0.60-1.30); POTASSIUM 4.1 MMOL/L (3.6-5.0); TOTAL PROTEIN 7.3 GM/DL (6.4-8.2)
== END ==
LOC: EDSTATUS 11-05 08:44 → ONC 08:45
PROVIDERS: ATTEND Internal Medicine Hematology & Oncology
DX: Z08 Encounter for follow-up examination after completed treatment for malignant neoplasm (principal); Z85.3 Personal history of malignant neoplasm of breast; E11.9 Type 2 diabetes mellitus without complications; I10 Essential (primary) hypertension; E78.00 Pure hypercholesterolemia, unspecified; E03.9 Hypothyroidism, unspecified; Z86.73 Personal history of transient ischemic attack (TIA), and cerebral infarction without residual deficits; Z79.899 Other long term (current) drug therapy
CPT/HCPCS: 36415; 80053; 85025; 99213

== ENCOUNTER 2018-09-01 10:01 | Outpatient (RCR) | payer MEDICARE, OTHER ==
[~2018-09-01 10:01] MED LIST changes: -ROSU10TA PO; +ROSU10TA22 PO
== END 2018-09-02 | disposition home or self-care (01) ==
LOC: CR 10:01
PROVIDERS: ATTEND Internal Medicine Cardiovascular Disease
DX: Z48.812 Encounter for surgical aftercare following surgery on the circulatory system (principal); Z95.5 Presence of coronary angioplasty implant and graft
CPT/HCPCS: 93798

== ENCOUNTER 2018-09-12 10:02 | Outpatient (RCR) | payer MEDICARE, OTHER | END 2018-12-02 | disposition home or self-care (01) | LOC: CR 10:02 | PROVIDERS: ATTEND Internal Medicine Cardiovascular Disease | DX: Z48.812 Encounter for surgical aftercare following surgery on the circulatory system (principal); Z95.5 Presence of coronary angioplasty implant and graft | CPT/HCPCS: 93798 ==

== ENCOUNTER → 2018-10-15 | Outpatient (RCR) | payer MEDICARE, OTHER | END | disposition home or self-care (01) | LOC: CR3 09-15 10:35 | PROVIDERS: ATTEND Internal Medicine Cardiovascular Disease | DX: Z29.8 Encounter for other specified prophylactic measures (principal) ==

== ENCOUNTER → 2019-08-10 | Outpatient (CLI) | payer MEDICARE, OTHER ==
[~2019-08-10] MED LIST changes: -METO-370 PO; +METO50TA7 PO
--- NOTE | 2019-08-11 10:30 | Diagnostic Imaging Report ---
INDICATION: Screening. TECHNIQUE: The current study was also evaluated with a Computer Aided Detection (CAD) system. 3D Tomographic imaging was also performed. COMPARISON: 08/06/2018, 08/05/2017, and 08/03/2016. FINDINGS: There are stable post therapeutic changes with some dystrophic calcification in the left breast. There is heterogeneously dense fibroglandular tissue on the right. There are a few benign type calcifications. There is no dominant mass, spiculated lesion, or suspicious calcification identified. The skin, nipples, and axillae are unremarkable. IMPRESSION: Benign findings. ACR BI-RADS Category 2: Benign findings. Result letter will be mailed to the patient. Note: At least 10% of breast cancer is not imaged by mammography. Dictated by: Dictated on workstation # [id number]
== END ==
LOC: RAD 08:52
PROVIDERS: ATTEND Family Medicine
DX: Z12.31 Encounter for screening mammogram for malignant neoplasm of breast (principal)
CPT/HCPCS: 77067

== ENCOUNTER → 2020-09-08 | Outpatient (CLI) | payer MEDICARE, OTHER ==
[~2020-09-08] MED LIST changes: +MELA1TAB51 PO; -MELA1TAB8 PO
--- NOTE | 2020-09-08 18:16 | Diagnostic Imaging Report ---
INDICATION: Routine screening. Comparison is made with prior mammogram of 08/10/2019 and 08/06/2018. 2-D and 3-D bilateral screening mammography was performed with CAD. The current study was also evaluated with a Computer Aided Detection (CAD) system. 3-D tomosynthesis was also performed and reviewed. Post-therapeutic changes with dystrophic calcifications in the left breast again noted. There is heterogeneously dense tissue of the right breast. No new mass or malignant appearing microcalcifications are seen. There is intraparenchymal lymph node upper outer right breast, stable. Axillae are unremarkable. IMPRESSION: No mammographic features suspicious for malignancy are identified. ACR BI-RADS Category 2: Benign findings. Result letter will be mailed to the patient. Note: At least 10% of breast cancer is not imaged by mammography. Dictated by: Dictated on workstation # [id number]
== END ==
LOC: RAD 10:24
PROVIDERS: ATTEND Family Medicine
DX: Z12.31 Encounter for screening mammogram for malignant neoplasm of breast (principal)
CPT/HCPCS: 77063; 77067

== ENCOUNTER → 2022-10-23 | Outpatient (CLI) | payer MEDICARE, OTHER ==
[~2022-10-23] MED LIST changes: +CLOP-31 PO; -CLOP75TA69 PO; +NF-CRES10T PO; -ROSU10TA22 PO
== END ==
LOC: CARD 10:53
PROVIDERS: ATTEND Nurse Practitioner Family
DX: I35.1 Nonrheumatic aortic (valve) insufficiency (principal)
CPT/HCPCS: 93306

== ENCOUNTER → 2022-10-24 | Outpatient (CLI) | payer MEDICARE, OTHER ==
--- NOTE | 2022-10-24 12:50 | Diagnostic Imaging Report ---
INDICATION: Routine screening. COMPARISON: 09/08/2020 and 08/10/2019. TECHNIQUE: 2D and 3D bilateral screening mammography was performed with CAD. FINDINGS: Post therapeutic changes in the left breast are again noted with dystrophic calcifications. The right breast remains heterogeneously dense, limiting the sensitivity of mammography. No mass or malignant-appearing microcalcifications are identified. The axillae are unremarkable. IMPRESSION: No mammographic features suspicious for malignancy are identified. ACR BI-RADS Category 2: Benign findings. Result letter will be mailed to the patient. Note: At least 10% of breast cancer is not imaged by mammography. Dictated by: Dictated on workstation # [id number]
== END ==
LOC: RAD 09:18
PROVIDERS: ATTEND Family Medicine
DX: Z12.31 Encounter for screening mammogram for malignant neoplasm of breast (principal)
CPT/HCPCS: 77063; 77067